=== PATIENT | male | born 1950 | race Caucasian/White ===

== ENCOUNTER 2016-05-29 17:22 | Inpatient (IN) | payer MEDICARE, BC ==
[~2016-05-29] VITALS: Ht 172.7 cm; Wt 100.3 kg
[2016-05-29 20:00] VITALS: BP 149/77; RESP 18
[2016-05-29] MEDS ORDERED: traMADol 50 MG TAB PO PRN (22:00)
[2016-05-29] MEDS ORDERED: BISACODYL 10 MG SUPP PR PRN (22:00)
[2016-05-29] MEDS: INSULIN GLARGINE [LANtus] 3 ML PEN SC SCH (22:00)
[2016-05-29 22:20] VITALS: Ht 172.7 cm; Wt 100.3 kg
[2016-05-29 23:09] LABS: ADD UMIC YES; URINE BILIRUBIN (Dip) NEGATIVE (NEGATIVE); URINE BLOOD (Dip) 1+ (NEGATIVE); URINE COLOR YELLOW (YELLOW); URINE GLUCOSE (Dip) NEGATIVE (NEGATIVE); URINE KETONES (Dip) NEGATIVE (NEGATIVE); URINE LEUKOCYTE ESTERASE (Dip) TRACE (NEGATIVE); URINE NITRITE (Dip) NEGATIVE (NEGATIVE); URINE TOTAL PROTEIN (Dip) 1+ (NEGATIVE); URINE UROBILINOGEN (Dip) 1.0 E.U./dL (0.1-1.0)
[2016-05-29 23:21] LABS: BACTERIA,URINE FEW
[2016-05-30] MEDS: PANTOPRAZOLE (EC) 40 MG TAB PO SCH (06:32)
[2016-05-30] MEDS: HYDROCODONE/APAP (5/325) TAB PO PRN (06:32)
[2016-05-30] MEDS ORDERED: GLIMEPIRIDE 4 MG TAB PO SCH (07:05)
[2016-05-30 07:35] LABS: BASOPHILS % 0.2 % (0.0-2.0); EOSINOPHILS # 0.3 10^3/ul (0.0-0.5); EOSINOPHILS % 2.8 % (0.0-7.0); HEMATOCRIT 38.9 % (42.0-52.0); LYMPHOCYTES # 1.2 10^3/ul (0.8-2.9); LYMPHOCYTES % 11.2 % (15.0-51.0); MEAN CORPUSCULAR HEMOGLOBIN 30.5 pg (29.0-33.0); MEAN CORPUSCULAR HGB CONC 33.4 g/dl (32.0-37.0); MEAN CORPUSCULAR VOLUME 91.4 fl (82.0-101.0); MEAN PLATELET VOLUME 8.6 fl (7.4-10.4); MONOCYTE # 0.9 10^3/ul (0.3-0.9); MONOCYTES % 7.9 % (0.0-11.0); NEUTROPHIL # 8.4 10^3/ul (1.6-7.5); NEUTROPHILS % 77.9 % (39.0-77.0); PLATELET COUNT 266 10^3/UL (140-440); RED BLOOD COUNT 4.26 10^6/ul (4.70-6.10); RED CELL DISTRIBUTION WIDTH 13.3 % (11.5-14.5); UNCORRECTED WBC 10.8 10^3/ul (4.8-10.8); WHITE BLOOD COUNT 10.8 10^3/ul (4.8-10.8)
[2016-05-30 07:43] LABS: MAGNESIUM 1.9 mg/dl (1.7-2.5)
[2016-05-30 07:44] LABS: ALBUMIN 3.6 g/dl (3.3-4.9)
[2016-05-30 07:45] LABS: POTASSIUM 4.4 mmol/L (3.5-5.1)
[2016-05-30 07:46] LABS: CREATININE 2.1 mg/dl (0.61-1.24)
[2016-05-30 07:47] LABS: ALBUMIN/GLOBULIN RATIO 0.92; BILIRUBIN,INDIRECT 0.5 mg/dl (0-1.1); BILIRUBIN,TOTAL 0.5 mg/dl (0.2-1.3); TOTAL PROTEIN 7.5 g/dl (6.1-8.1)
[2016-05-30 07:48] LABS: CALCIUM 10.8 mg/dl (8.4-10.2)
[2016-05-30 07:51] LABS: CONDITION 1
[2016-05-30 08:47] VITALS: BP 123/63; RESP 18
[2016-05-30] MEDS ORDERED: GLUCOSE GEL 15 GRAM TUBE BUCCAL PRN (09:30)
[2016-05-30] MEDS ORDERED: GLUCAGON 1 MG INJ IM PRN (09:30)
[2016-05-30] MEDS ORDERED: GLUCOSE GEL 15 GRAM TUBE PO PRN ×2 (09:30)
[2016-05-30] MEDS ORDERED: DEXTROSE 50% 50 ML SYRINGE IV PRN ×2 (09:30)
[2016-05-30] MEDS: METOPROLOL 100 MG TAB PO SCH (09:37)
[2016-05-30] MEDS: LINAGLIPTIN 5 MG TABLET PO SCH (09:37)
[2016-05-30] MEDS: ENOXAPARIN 30 MG/0.3 ML SYG SC SCH (09:50)
[2016-05-30] MEDS: INSULIN ASPART [NOVOLOG] 3 ML PEN SC SCH ×3 (12:22→20:44)
--- NOTE | 2016-05-30 13:13 | HP ---
DATE OF ADMISSION: 05/29/2016 CHIEF COMPLAINT: Left leg fracture. HISTORY OF PRESENT ILLNESS: This is a 65-year-old ____ with a past medical history of diabetes, his tory of possible chronic kidney disease who presented to an outside hospital after having a caterpillar mechanic al fall. The patient remained immobile after the fall, but had significant pain. As a result, the patient was brought in to an outside hospital, [place], where the patient was diagnosed with a left femoral fracture. The patient was seen by orthopedist, Dr. Bush. After having cardiac cleara nce, the patient underwent successful open reduction internal fixation, left distal femur. Followi ng the surgery, patient continued to have pain, but otherwise had no other complications. The umesh ent was then transferred to [facility] acute rehab for continued care. Upon my evaluation of patient at this time, he is currently stable. Denies any fevers, chills, naus ea, vomiting, any shortness of breath. PAST MEDICAL HISTORY: History of diabetes, possible history of CKD, history of hypertension. PAST SURGICAL HISTORY: Recent left femoral ORIF. FAMILY HISTORY: No family history of kidney disease or heart disease. SOCIAL HISTORY: Does not drink, smoke or do drugs. ALLERGIES: NO KNOWN DRUG ALLERGIES. MEDICATIONS: The patient's medications have been reviewed and reconciled. REVIEW OF SYSTEMS: A 14-point review of systems was conducted. Pertinent positives as stated in HP I, otherwise negative. PHYSICAL EXAMINATION: VITAL SIGNS: Blood pressure is 149/77, respiration 18, pulse 70, temperature 97.8. HEENT: Head is normocephalic. Pupils are reactive to light. NECK: Supple. HEART: Regular rate. LUNGS: Show diminished breath sounds at base. ABDOMEN: Soft, nontender to palpation with no rebound or guarding. ____ EXTREMITIES: Negative for clubbing, cyanosis, no edema. DERMATOLOGIC: No rashes. MUSCULOSKELETAL: The patient's left leg has noted gil and there was some mild surrounding eryth danay. No pain. NEUROLOGIC: No focal deficits. DERMATOLOGIC: No rashes. LABORATORY DATA: Shows sodium 143, potassium 4.4, chloride is 106, BUN 41, creatinine 2.10. Calciu m 10.8, alkaline phosphatase 188. White count 10.8, hemoglobin 13.0, hematocrit 38.9, platelet coun t is 266. Urinalysis shows 25 to 50 WBCs. ASSESSMENT AND PLAN: This is a 65-year-old male who presents with: 1. Left distal femoral fracture. The patient is status post open reduction internal fixation. Shemar n is for patient to receive physical therapy per acute rehabilitation. Pain control. The patient w ill receive thrombosis prophylaxis with Lovenox. 2. Possible chronic kidney disease. The patient's creatinine appears to be stable around 2 mg/dL. Underlying etiology may be due to underlying diabetic nephropathy. Full workup will be performed. Will check UA with microanalysis. Check urine electrolytes. We will quantify patient's proteinuri a by checking albumin creatinine ratio protein/creatinine ratio. We will check renal ultrasound to evaluate renal parenchyma. Would otherwise continue supportive care, renally dose meds, defer any A CE inhibitor at this time and monitor renal function closely. 3. Hypercalcemia. Underlying etiology is unclear. Workup will be performed. Will check PTH level , vitamin D25 level, will check an SPEP, UPEP with immunofixation and will continue to monitor clos patricia. 4. Anemia, likely of chronic disease. Continue to monitor H and H levels. 5. Diabetes. Continue Accu-Cheks and sliding scale. 6. Hypertension. Continue current blood pressure regimen. 7. Obesity. Recommend dietary modification. 8. GI/DVT prophylaxis. Continue PPI and Lovenox. Please note I spent 30 minutes of face to face time with this patient, discussing code status and ad ventura directives Dictated By: OMER TEMPLE/MARY Conf#: [id number] DID#: [id number]
--- NOTE | 2016-05-30 13:19 | CONS ---
DATE OF ADMISSION: 05/29/2016 DATE OF CONSULTATION: 05/30/2016 REHABILITATION POST ADMISSION PHYSICIAN EVALUATION REHABILITATION IMPAIRMENT CATEGORY: Left femur fracture with a comminuted fracture at the distal fe moral metaphysis, status post ORIF. ACTIVE COMORBIDITIES: 1. Diabetes mellitus type 2. 2. Hypertension. 3. Acute pain syndrome. 4. Impairments in self-care and mobility. HISTORY OF PRESENT ILLNESS: The patient is a 65-year-old gentleman who is status post a mechanical fall at home with resultant left distal femoral comminuted fracture. The patient underwent ORIF on 05/25/2016. His postoperative course has been notable for significant pain, and impairments in self -care and mobility as compared to baseline. The patient has been cleared to transfer to the rehabil itation unit for comprehensive interdisciplinary rehab care. FUNCTIONAL HISTORY: Prior to recent events, he was independent in self-care tasks and mobility. Cu rrently, he requires maximal assist for self-care and mobility tasks. SOCIAL HISTORY: The patient lives at home and hopes to return there upon discharge. He reports he does have stairs at home. PAST MEDICAL HISTORY: 1. Diabetes type 2. 2. Hypertension. CURRENT MEDICATIONS: 1. [place] p.r.n. 2. Dulaglutide subq once a week. 3. Glimeprimide 4 mg daily. 4. Lantus 55 units subcu at bedtime. 5. Metoprolol 100 mg p.o. daily. 6. Januvia 100 mg daily. 7. Tramadol 2 tabs p.o. q.4 hours p.r.n. ALLERGIES: THE PATIENT WITH NO KNOWN DRUG ALLERGIES. PHYSICAL EXAMINATION: VITAL SIGNS: The patient is currently afebrile with stable vital signs. HEENT: The extraocular motions are intact. Oropharynx clear. NECK: Supple. LUNGS: Clear anteriorly. CARDIAC: S1, S2. ABDOMEN: Soft, nontender, positive bowel sounds. NEUROLOGIC: He is awake, alert and oriented x3, can follow simple 1-step commands. He demonstrates antigravity strength in bilateral upper extremity and the right lower extremity. Dorsiflexion and plantar flexion intact on the left. PLAN: The patient has been admitted for comprehensive interdisciplinary acute rehab and is anticipa carolina to tolerate 3 hours of daily therapy in divided doses for at least 5/7 days a week. The treatme nt plan will include: 1. Physical therapy to focus on bed mobility, transfers, and household ambulation with the goal of having the patient reach a standby assist level. 2. Occupational therapy to focus on hygiene, grooming, dressing, bathing, and toileting activities with the goal of having the patient reach standby assist level. 3. Rehabilitation nursing for carryover of therapeutic interventions, the goal of continent of jayden l and bladder, the goal of pain adequately managed on oral medications. REHABILITATION BARRIER: Pain. INTERVENTION FOR BARRIER: Comprehensive interdisciplinary approach. ESTIMATED LENGTH OF STAY: 14 days. DISPOSITION GOAL: Home. I acknowledge that I have performed a full physical examination on this patient within 24 hours of a dmission to the rehabilitation unit and believe the patient is a good candidate for comprehensive in terdisciplinary rehab care and is anticipated to make reasonable goals in a reasonable period of mona e as outlined above. Dictated By: PATI WATERS/NTS Conf#: [id number] DID#: [id number]
[2016-05-30 18:02] LABS: ADD UMIC YES; URINE BILIRUBIN (Dip) NEGATIVE (NEGATIVE); URINE BLOOD (Dip) 1+ (NEGATIVE); URINE COLOR LT. YELLOW (YELLOW); URINE GLUCOSE (Dip) NEGATIVE (NEGATIVE); URINE KETONES (Dip) NEGATIVE (NEGATIVE); URINE LEUKOCYTE ESTERASE (Dip) TRACE (NEGATIVE); URINE NITRITE (Dip) NEGATIVE (NEGATIVE); URINE TOTAL PROTEIN (Dip) 2+ (NEGATIVE); URINE UROBILINOGEN (Dip) 1.0 E.U./dL (0.1-1.0)
[2016-05-30 18:15] LABS: SQUAMOUS EPITHELIAL CELL,UR RARE; URINE RBCS 0-2 /HPF (0)
[2016-05-30 20:00] VITALS: BP 124/74; RESP 18
[2016-05-30] MEDS: INSULIN GLARGINE [LANtus] 3 ML PEN SC SCH (20:46)
[2016-05-31] MEDS: ACCUCHECK XX SCH (01:21)
[2016-05-31] MEDS: PANTOPRAZOLE (EC) 40 MG TAB PO SCH (06:48)
[2016-05-31 07:14] LABS: POTASSIUM 4.3 mmol/L (3.5-5.1)
[2016-05-31 07:16] LABS: CREATININE 1.95 mg/dl (0.61-1.24)
[2016-05-31 07:17] LABS: CALCIUM 10.6 mg/dl (8.4-10.2); MAGNESIUM 1.9 mg/dl (1.7-2.5); PHOSPHORUS 2.9 mg/dl (2.5-4.9)
[2016-05-31] MEDS: INSULIN ASPART [NOVOLOG] 3 ML PEN SC SCH ×4 (07:35→20:45)
[2016-05-31 08:00] VITALS: BP 128/74; PULSE 77; RESP 18
[2016-05-31] MEDS: LINAGLIPTIN 5 MG TABLET PO SCH (08:46)
[2016-05-31] MEDS: ENOXAPARIN 30 MG/0.3 ML SYG SC SCH (08:46)
[2016-05-31] MEDS: METOPROLOL 100 MG TAB PO SCH (08:47)
[2016-05-31 11:06] LABS: BASOPHILS % 0.3 % (0.0-2.0); EOSINOPHILS # 0.3 10^3/ul (0.0-0.5); EOSINOPHILS % 3.2 % (0.0-7.0); HEMATOCRIT 36.8 % (42.0-52.0); HEMOGLOBIN 12.2 g/dl (14.0-18.0); LYMPHOCYTES # 1.2 10^3/ul (0.8-2.9); LYMPHOCYTES % 12.7 % (15.0-51.0); MEAN CORPUSCULAR HEMOGLOBIN 30.3 pg (29.0-33.0); MEAN CORPUSCULAR HGB CONC 33.2 g/dl (32.0-37.0); MEAN CORPUSCULAR VOLUME 91.4 fl (82.0-101.0); MEAN PLATELET VOLUME 8.8 fl (7.4-10.4); MONOCYTE # 0.7 10^3/ul (0.3-0.9); MONOCYTES % 7.8 % (0.0-11.0); NEUTROPHIL # 7.3 10^3/ul (1.6-7.5); PLATELET COUNT 251 10^3/UL (140-440); RED BLOOD COUNT 4.02 10^6/ul (4.70-6.10); RED CELL DISTRIBUTION WIDTH 13.4 % (11.5-14.5); UNCORRECTED WBC 9.6 10^3/ul (4.8-10.8); WHITE BLOOD COUNT 9.6 10^3/ul (4.8-10.8)
[2016-05-31 11:10] LABS: CONDITION 1
--- NOTE | 2016-05-31 11:13 | CONS ---
Date/Time of Note Date/Time of Note DATE: 05/31/16 TIME: 11:12 Consult Date/Type/Reason Admit Date/Time May 29, 2016 at 20:24 Initial Consult Date Subjective Feeling better Objective Vital Signs Date Time Temp Pulse Resp B/P Pulse Ox O2 Delivery O2 Flow Rate FiO2 05/31/16 08:00 97.3 77 18 128/74 94 Room Air Intake and Output 05/30/16 05/30/16 05/31/16 14:59 22:59 06:59 Intake Total 1550 ml 240 ml 360 ml Output Total 1450 ml 200 ml 950 ml Balance 100 ml 40 ml -590 ml pulm- cta mod assist ambulation 10 feet Results/Medications Result Diagram: 05/31/16 0608 05/31/16 0608 Results 24 hrs Laboratory Tests Test 05/30/16 11:51 05/30/16 13:00 05/30/16 16:15 05/30/16 17:10 Bedside Glucose 181 149 Gamma Glutamyl Transpeptidase 202 H Vitamin D 1,25-Dihydroxy < 12.8 L Urine Bilirubin NEGATIVE Urine Clarity CLEAR Urine Color LT. YELLOW Urine Glucose NEGATIVE Urine Hemoglobin 1+ H Urine Ketones NEGATIVE Urine Leukocyte Esterase TRACE H Urine Microscopic RBC 0-2 Urine Microscopic WBC 10-25 Urine Nitrite NEGATIVE Urine Random Creatinine 72.64 Urine Random Sodium 74 Urine Specific Filer 1.020 Urine Squamous Epithelial Cells RARE Urine Total Protein Urine Urobilinogen 1.0 E.U./dL Urine pH 6.0 Test 05/30/16 20:42 05/31/16 06:08 05/31/16 07:36 Bedside Glucose 135 110 Anion Gap 16 Basophils # 0.0 Basophils % 0.3 Blood Urea Nitrogen 40 H Calcium Level 10.6 H Carbon Dioxide Level 20 L Chloride Level 108 Creatinine 1.95 H Eosinophils # 0.3 Eosinophils % 3.2 Glucose Level 113 # Hematocrit 36.8 L Hemoglobin 12.2 L Lymphocytes # 1.2 Lymphocytes % 12.7 L Magnesium Level 1.9 Mean Corpuscular Hemoglobin 30.3 Mean Corpuscular Hemoglobin Concent 33.2 Mean Corpuscular Volume 91.4 Mean Platelet Volume 8.8 Monocytes # 0.7 Monocytes % 7.8 Neutrophils # 7.3 Neutrophils % 76.0 Nucleated Red Blood Cells # 0.0 Nucleated Red Blood Cells % 0.0 Phosphorus Level 2.9 Platelet Count 251 Potassium Level 4.3 Red Blood Count 4.02 L Red Cell Distribution Width 13.4 Sodium Level 140 White Blood Count 9.6 Medications Current Medications Acetaminophen/ Hydrocodone Bitart ([place] (5/325)) 1 tab Q4H PRN PO Moderate Pain 4-7 / 10 Last administered on 05/30/16 06:32; Admin Dose 1 TAB; Start at 22:00 Bisacodyl (Dulcolax Supp) 10 mg DAILY PRN [place] CONSTIPATION; Start 05/29/16 at 22 :00 Insulin Glargine (Lantus) 55 unit QHS SC Last administered on 05/30/16 20:46; Admin Dose 55 UNIT; Start 05/29/16 at 22:00 Metoprolol Tartrate (Lopressor) 100 mg DAILY PO Last administered on 05/31/16 08:47; Admin Dose 100 MG; Start 05/30/16 at 09:00 Pantoprazole (Protonix Tab) 40 mg DAILY@06 PO Last administered on 05/31/16 06: 48; Admin Dose 40 MG; Start 05/30/16 at 06:00 Tramadol HCl (Ultram) 100 mg Q4 PRN PO PAIN; Start 05/29/16 at 22:00 Miscellaneous Information (* Miscellaneous Pharmacy Order) DULAGLUTIDE 1.5 MG/ 0.5 MG ... ONCE XX ; Start 05/29/16 at 22:00; Status UNV Linagliptin (Tradjenta) 5 mg DAILY PO Last administered on 05/31/16 08:46; Admin Dose 5 MG; Start 05/30/16 at 09:00 Diagnostic Test (Pha) (Accucheck) 1 ea 02 XX ; Start 05/31/16 at 02:00 Miscellaneous Information 1 ea NOTE XX ; Start 05/30/16 at 09:30 Glucose (Glutose) 15 gm Q15M PRN PO DECREASED GLUCOSE; Start 05/30/16 at 09:30 Glucose (Glutose) 22.5 gm Q15M PRN PO DECREASED GLUCOSE; Start 05/30/16 at 09: 30 Dextrose (D50w Syringe) 25 ml Q15M PRN IV DECREASED GLUCOSE; Start 05/30/16 at 09:30 Dextrose (D50w Syringe) 50 ml Q15M PRN IV DECREASED GLUCOSE; Start 05/30/16 at 09:30 Glucagon (Glucagen) 1 mg Q15M PRN IM DECREASED GLUCOSE; Start 05/30/16 at 09:30 Glucose (Glutose) 15 gm Q15M PRN BUCCAL DECREASED GLUCOSE; Start 05/30/16 at 09 :30 Enoxaparin Sodium (Lovenox) 30 mg DAILY SC Last administered on 05/31/16t 08:46 ; Admin Dose 30 MG; Start 05/30/16 at 09:30 Assessment/Plan Additional Assessment/Plan Rehab- Left femur fracture with a comminuted fracture at the distal femoral metaphysis, status post ORIF. Continue rehab program Diabetes mellitus type 2. Hypertension. Acute pain syndrome. PATI PEREZ MD May 31, 2016 11:13
--- NOTE | 2016-05-31 12:01 | PN ---
DATE: 05/31/2016 SUBJECTIVE: The patient is stable, no acute events overnight. No fevers, chills, nausea, vomiting, no shortness of breath. OBJECTIVE: VITAL SIGNS: Blood pressure is 124/74, respiration 18, pulse 80, temperature 98.3. HEENT: Head is normocephalic. NECK: Supple. HEART: Regular rate. LUNGS: Show diminished breath sounds at the base. ABDOMEN: Soft, nontender to palpation. No rebound or guarding. EXTREMITIES: Negative for clubbing, cyanosis. No edema. DERMATOLOGIC: No rashes. MUSCULOSKELETAL: The patient's dressing over his left femur is clean, dry, and intact. NEUROLOGIC: No focal deficits. MEDICATIONS: Patient's medications have been reviewed. LABORATORY DATA: Shows sodium 140, potassium 4.3, chloride 108, BUN 40, creatinine 1.95, calcium 10 .6. White count 10.8, hemoglobin 13.0, hematocrit 38.9, platelet count 266. ASSESSMENT AND PLAN: 1. Left distal femoral fracture. The patient is status post open reduction internal fixation. The patient will continue PT, OT, per acute rehabilitation. 2. Possible chronic kidney disease. The patient's renal function appears stable, creatinine 2 mg/d L. Underlying etiology is unclear, possibly due to diabetic nephropathy. A full workup is ongoing. SPEP, UPEP are pending. The patient's protein/creatinine ratio, albumin and creatinine ratio pendi ng. We will follow up renal ultrasound. Otherwise, continue supportive care, renally dose all meds , avoid nephrotoxins. 3. Hypercalcemia, etiology is unclear. Workup ongoing. We will follow up PTH level, SPEP, UPEP le mauro. The patient's vitamin D25 levels are low. We will continue to monitor. 4. Anemia of chronic disease. Continue to monitor H and H levels. 5. Diabetes. Continue current insulin regimen, Lantus and insulin sliding scale. 6. Hypertension, controlled. 7. Obesity. Continue dietary modification. 8. GI and DVT prophylaxis. Continue proton pump inhibitor and Lovenox. Dictated By: OMER TEMPLE/NTS Conf#: [id number] DID#: [id number]
[2016-05-31 20:00] VITALS: BP 118/66; RESP 18
[2016-05-31] MEDS: INSULIN GLARGINE [LANtus] 3 ML PEN SC SCH (20:48)
[2016-06-01] MEDS: ACCUCHECK XX SCH (02:00)
[2016-06-01 03:58] LABS: PROTEIN, TOTAL 6.5 g/dL (6.1-8.1)
[2016-06-01] MEDS: PANTOPRAZOLE (EC) 40 MG TAB PO SCH (06:00)
[2016-06-01 06:57] LABS: POTASSIUM 4.4 mmol/L (3.5-5.1)
[2016-06-01 07:00] LABS: CREATININE 1.96 mg/dl (0.61-1.24)
[2016-06-01 07:01] LABS: CALCIUM 10.8 mg/dl (8.4-10.2); MAGNESIUM 1.9 mg/dl (1.7-2.5); PHOSPHORUS 3.5 mg/dl (2.5-4.9)
[2016-06-01] MEDS: INSULIN ASPART [NOVOLOG] 3 ML PEN SC SCH ×4 (07:35→21:00)
[2016-06-01 08:00] VITALS: BP 129/80; RESP 18
[2016-06-01] MEDS: LINAGLIPTIN 5 MG TABLET PO SCH (08:41)
[2016-06-01] MEDS: ENOXAPARIN 30 MG/0.3 ML SYG SC SCH (08:41)
[2016-06-01] MEDS: METOPROLOL 100 MG TAB PO SCH (08:42)
[2016-06-01 09:29] LABS: BILIRUBIN,INDIRECT 0.4 mg/dl (0-1.1); BILIRUBIN,TOTAL 0.4 mg/dl (0.2-1.3)
--- NOTE | 2016-06-01 11:55 | CONS ---
Date/Time of Note Date/Time of Note DATE: 06/01/16 TIME: 11:54 Consult Date/Type/Reason Admit Date/Time May 29, 2016 at 20:24 Subjective Reports constipation Objective Vital Signs Date Time Temp Pulse Resp B/P Pulse Ox O2 Delivery O2 Flow Rate FiO2 06/01/16 08:00 98.5 80 18 129/80 93 05/31/16 08:00 Room Air Intake and Output 05/31/16 05/31/16 06/01/16 15:00 23:00 07:00 Intake Total 720 ml 650 ml Output Total 1000 ml 500 ml Balance -280 ml 150 ml pulm- cta mod assist transfer and amb 10 feet Results/Medications Result Diagram: 05/31/16 0608 06/01/16 0606 Results 24 hrs Laboratory Tests Test 05/31/16 12:08 05/31/16 17:10 05/31/16 20:43 06/01/16 06:06 Bedside Glucose 134 128 113 Alanine Aminotransferase (ALT/SGPT) 40 Albumin 3.0 L Alkaline Phosphatase 164 H Anion Gap 16 Aspartate Amino Transf (AST/SGOT) 33 Blood Urea Nitrogen 41 H Calcium Level 10.8 H Carbon Dioxide Level 20 L Chloride Level 109 Creatinine 1.96 H Direct Bilirubin 0.00 Glucose Level 107 Indirect Bilirubin 0.4 Magnesium Level 1.9 Phosphorus Level 3.5 Potassium Level 4.4 Sodium Level 141 Total Bilirubin 0.4 Total Protein 6.0 #L Test 06/01/16 07:39 Bedside Glucose 105 Medications Current Medications Acetaminophen/ Hydrocodone Bitart ([place] (5/325)) 1 tab Q4H PRN PO Moderate Pain 4-7 / 10 Last administered on 05/30/16 06:32; Admin Dose 1 TAB; Start at 22:00 Bisacodyl (Dulcolax Supp) 10 mg DAILY PRN [place] CONSTIPATION; Start 05/29/16 at 22 :00 Insulin Glargine (Lantus) 55 unit QHS SC Last administered on 05/31/16 20:48; Admin Dose 55 UNIT; Start 05/29/16 at 22:00 Metoprolol Tartrate (Lopressor) 100 mg DAILY PO Last administered on 06/01/16 08:42; Admin Dose 100 MG; Start 05/30/16 at 09:00 Pantoprazole (Protonix Tab) 40 mg DAILY@06 PO Last administered on 05/31/16 06: 48; Admin Dose 40 MG; Start 05/30/16 at 06:00 Tramadol HCl (Ultram) 100 mg Q4 PRN PO PAIN; Start 05/29/16 at 22:00 Miscellaneous Information (* Miscellaneous Pharmacy Order) DULAGLUTIDE 1.5 MG/ 0.5 MG ... ONCE XX ; Start 05/29/16 at 22:00; Status UNV Linagliptin (Tradjenta) 5 mg DAILY PO Last administered on 06/01/16 08:41; Admin Dose 5 MG; Start 05/30/16 at 09:00 Diagnostic Test (Pha) (Accucheck) 1 ea 02 XX ; Start 05/31/16 at 02:00 Miscellaneous Information 1 ea NOTE XX ; Start 05/30/16 at 09:30 Glucose (Glutose) 15 gm Q15M PRN PO DECREASED GLUCOSE; Start 05/30/16 at 09:30 Glucose (Glutose) 22.5 gm Q15M PRN PO DECREASED GLUCOSE; Start 05/30/16 at 09: 30 Dextrose (D50w Syringe) 25 ml Q15M PRN IV DECREASED GLUCOSE; Start 05/30/16 at 09:30 Dextrose (D50w Syringe) 50 ml Q15M PRN IV DECREASED GLUCOSE; Start 05/30/16 at 09:30 Glucagon (Glucagen) 1 mg Q15M PRN IM DECREASED GLUCOSE; Start 05/30/16 at 09:30 Glucose (Glutose) 15 gm Q15M PRN BUCCAL DECREASED GLUCOSE; Start 05/30/16 at 09 :30 Enoxaparin Sodium (Lovenox) 30 mg DAILY SC Last administered on 06/01/16 08:41 ; Admin Dose 30 MG; Start 05/30/16 at 09:30 Lactulose (Enulose) 10 gm DAILY PRN PO CONSTIPATION; Start 06/01/16 at 10:30 Assessment/Plan Additional Assessment/Plan Rehab- Left femur fracture with a comminuted fracture at the distal femoral metaphysis, status post ORIF. Continue rehab therapies Diabetes mellitus type 2. Hypertension. Acute pain syndrome. PATI PEREZ MD Jun 01, 2016 11:55
--- NOTE | 2016-06-01 12:37 | RADRPT ---
PROCEDURE: US Abdomen and Retroperitoneum. CLINICAL INDICATION: Abdominal pain. TECHNIQUE: Multiple real-time longitudinal and transverse images were acquired of the patient's ab domen and retroperitoneum utilizing a curved array transducer. COMPARISON: No prior studies are available for comparison. FINDINGS: The liver is normal in size and echogenicity. The liver has a normal smooth surface. There is no fo you hepatic lesion. Color Doppler and pulsed Doppler sonography demonstrate normal antegrade flow in the portal vein. Multiple gallstones are present in the gallbladder. There is no gallbladder wall thickening and the re is no fluid around the gallbladder. The bile ducts are normal with the common bile duct measuring 4.8 mm in diameter. The spleen is normal in size. There is no focal splenic lesion. The pancreas and abdominal aorta are not well seen due to overlying bowel gas. There is no free fluid. The right kidney measures 9.8 cm and the left kidney measures 10.1 cm. There is no solid renal mass. There are small benign bilateral renal cysts. There is no hydronephrosis or calculus. IMPRESSION: 1. Gallstones in the gallbladder. No evidence of cholecystitis. 2. Pancreas and abdominal aorta not well seen due to overlying bowel gas. 3. Small benign bilateral renal cysts. 4. Otherwise unremarkable study. RPTAT: QQ .Davidson Guevara MD, MD Date Time Electronically viewed and signed by .Davidson Guevara MD, MD on 06/01/2016 12:37 .R/
--- NOTE | 2016-06-01 12:45 | PN ---
DATE: 06/01/2016 SUBJECTIVE: The patient is stable, no acute events overnight. No fevers, chills, nausea, vomiting. No other acute events noted overnight. OBJECTIVE: VITAL SIGNS: Blood pressure 129/80, respirations 18, pulse 80, temperature 98.5. HEENT: Head is normocephalic. NECK: Supple. HEART: Regular rate. LUNGS: Show diminished breath sounds at the base. ABDOMEN: Soft, nontender to palpation, no rebound or guarding. EXTREMITIES: Negative for clubbing, cyanosis, no edema. DERMATOLOGIC: No rashes. MUSCULOSKELETAL: No joint effusions. NEUROLOGIC: No change in exam. MEDICATIONS: The patient's medications have been reviewed. LABORATORY DATA: Shows sodium 141, potassium 4.4, chloride 109, BUN 41, creatinine 1.96, calcium 10 .8. The patient's urine culture shows gram-negative rods, less than 10,000 colony forming units. ASSESSMENT AND PLAN: 1. Left distal femoral fracture. The patient is status post open reduction internal fixation. Con tinue PT, OT. 2. Probable chronic kidney disease. Underlying etiology is likely due to diabetes, hypertension. Renal function appears to be stable with creatinine 2.0 mg/dL. Plan at this point is to follow up w ith a renal ultrasound. SPEP, UPEP are pending. A protein/creatinine ratio and albumin/creatinine ratio are also pending for further evaluation. Otherwise, continue supportive care, renally dose al l meds, avoid nephrotoxins. 3. Mineral bone disorder. The patient is hypercalcemic, etiology is unclear if this is PTH mediate d or non-PTH mediated. Workup is ongoing as stated above. We will follow up PTH, SPEP, UPEP, vitam in D level. Continue to monitor calcium levels. 4. Anemia of chronic disease. Continue to monitor hemoglobin and hematocrit levels. 5. Diabetes. Continue current insulin regimen. 6. Hypertension, controlled. 7. Obesity. Continue dietary modification. 8. Elevated alkaline phosphatase, etiology may be hepatic in nature. The patient has elevated GGT. Will get an abdominal ultrasound for evaluation of the liver and monitor. 9. Gastrointestinal and deep venous thrombosis prophylaxis. Continue PPI and Lovenox. Dictated By: OMER TEMPLE/NTS Conf#: [id number] DID#: [id number]
[2016-06-01 16:04] LABS: MICROALBUMIN 57.6 mg/dL
[2016-06-01 16:27] LABS: CREATININE, RANDOM URINE 89 mg/dL (20-370); PROTEIN/CREATININE RATIO 1281 mg/g creat (22-128)
[2016-06-01 19:22] VITALS: BP 142/74; RESP 19
[2016-06-01] MEDS: INSULIN GLARGINE [LANtus] 3 ML PEN SC SCH (20:41)
[2016-06-01] MEDS: LACTULOSE 30ML CUP PO PRN ×2 (20:42→21:04)
[2016-06-02] MEDS: ACCUCHECK XX SCH (02:00)
[2016-06-02] MEDS: PANTOPRAZOLE (EC) 40 MG TAB PO SCH (06:12)
[2016-06-02 07:30] VITALS: BP 135/77; RESP 18
[2016-06-02] MEDS: INSULIN ASPART [NOVOLOG] 3 ML PEN SC SCH ×4 (07:35→20:31)
[2016-06-02 08:00] VITALS: BP 135/77; PULSE 92; RESP 18
[2016-06-02] MEDS: LINAGLIPTIN 5 MG TABLET PO SCH (08:22)
[2016-06-02] MEDS: ENOXAPARIN 30 MG/0.3 ML SYG SC SCH (08:24)
[2016-06-02] MEDS: METOPROLOL 100 MG TAB PO SCH (08:25)
[2016-06-02 08:48] LABS: ALBUMIN 3.1 g/dL (3.8-4.8)
--- NOTE | 2016-06-02 11:36 | CONS ---
Date/Time of Note Date/Time of Note DATE: 06/02/16 TIME: 11:35 Consult Date/Type/Reason Admit Date/Time May 29, 2016 at 20:24 Subjective Constipation Objective pulm- cta mod assist transfer Vital Signs Date Time Temp Pulse Resp B/P Pulse Ox O2 Delivery O2 Flow Rate FiO2 06/02/16 08:00 98.3 92 18 135/77 96 Room Air Intake and Output 06/01/16 06/01/16 06/02/16 15:00 23:00 07:00 Intake Total 480 ml 560 ml 100 ml Output Total 750 ml 350 ml 700 ml Balance -270 ml 210 ml -600 ml Results/Medications Result Diagram: 05/31/16 0608 06/01/16 0606 Results 24 hrs Laboratory Tests Test 06/01/16 12:16 06/01/16 17:00 06/01/16 20:38 06/02/16 07:45 Bedside Glucose 84 94 123 60 L Test 06/02/16 08:02 06/02/16 08:21 06/02/16 08:51 Lab Scanned Report REFERENCE LAB REFERENCE LAB Bedside Glucose 85 Medications Current Medications Acetaminophen/ Hydrocodone Bitart ([place] (5/325)) 1 tab Q4H PRN PO Moderate Pain 4-7 / 10 Last administered on 05/30/16 06:32; Admin Dose 1 TAB; Start at 22:00 Bisacodyl (Dulcolax Supp) 10 mg DAILY PRN [place] CONSTIPATION; Start 05/29/16 at 22 :00 Metoprolol Tartrate (Lopressor) 100 mg DAILY PO Last administered on 06/02/16 08:25; Admin Dose 100 MG; Start 05/30/16 at 09:00 Pantoprazole (Protonix Tab) 40 mg DAILY@06 PO Last administered on 06/02/16 06: 12; Admin Dose 40 MG; Start 05/30/16 at 06:00 Tramadol HCl (Ultram) 100 mg Q4 PRN PO PAIN; Start 05/29/16 at 22:00 Linagliptin (Tradjenta) 5 mg DAILY PO Last administered on 06/02/16 08:22; Admin Dose 5 MG; Start 05/30/16 at 09:00 Diagnostic Test (Pha) (Accucheck) 1 ea 02 XX ; Start 05/31/16 at 02:00 Miscellaneous Information 1 ea NOTE XX ; Start 05/30/16 at 09:30 Glucose (Glutose) 15 gm Q15M PRN PO DECREASED GLUCOSE; Start 05/30/16 at 09:30 Glucose (Glutose) 22.5 gm Q15M PRN PO DECREASED GLUCOSE; Start 05/30/16 at 09: 30 Dextrose (D50w Syringe) 25 ml Q15M PRN IV DECREASED GLUCOSE; Start 05/30/16 at 09:30 Dextrose (D50w Syringe) 50 ml Q15M PRN IV DECREASED GLUCOSE; Start 05/30/16 at 09:30 Glucagon (Glucagen) 1 mg Q15M PRN IM DECREASED GLUCOSE; Start 05/30/16 at 09:30 Glucose (Glutose) 15 gm Q15M PRN BUCCAL DECREASED GLUCOSE; Start 05/30/16 at 09 :30 Enoxaparin Sodium (Lovenox) 30 mg DAILY SC Last administered on 06/02/16t 08:24 ; Admin Dose 30 MG; Start 05/30/16 at 09:30 Lactulose (Enulose) 10 gm DAILY PRN PO CONSTIPATION; Start 06/01/16 at 10:30 Insulin Glargine (Lantus) 50 unit QHS SC ; Start 06/02/16 at 21:00 Assessment/Plan Additional Assessment/Plan Rehab- Left femur fracture with a comminuted fracture at the distal femoral metaphysis, status post ORIF. Continue rehab program Diabetes mellitus type 2. Hypertension. Acute pain syndrome. PATI PEREZ MD Jun 02, 2016 11:36
[2016-06-02] MEDS: LACTULOSE 30ML CUP PO PRN (12:16)
--- NOTE | 2016-06-02 13:53 | PN ---
DATE: 06/02/2016 SUBJECTIVE: The patient is stable, no acute events overnight. No fevers, chills, nausea, vomiting. Patient's pain is adequately controlled with ____ physical therapy. OBJECTIVE: VITAL SIGNS: Blood pressure 135/77, respiration 18, pulse 92, temperature 98.3. HEENT: Head is normocephalic. NECK: Supple. HEART: Regular rate. LUNGS: Show diminished breath sounds at the base. ABDOMEN: Soft, nontender to palpation. No rebound or guarding. EXTREMITIES: Negative for clubbing, cyanosis, no edema. The patient's left leg is in a soft brace. DERMATOLOGIC: No rashes. MUSCULOSKELETAL: No joint effusions. NEUROLOGIC: No change in exam. MEDICATIONS: The patient's medications have been reviewed. LABORATORY DATA: The patient's urinalysis shows a protein/creatinine ratio of 1.2 grams per gram of creatinine. Microalbumin creatinine ratio is 600 mg per gram of creatinine. IMAGING STUDIES: Patient's parathyroid hormone is 60. SPEP UPEP immunofixation were negative. The patient had abdominal ultrasound shows gallstones. No evidence of cholecystitis and benign renal c ysts. The patient's liver was otherwise within normal limits. ASSESSMENT AND PLAN: 1. Left distal femoral fracture. The patient is status post open reduction internal fixation. Con belgica PT, OT. 2. Chronic kidney disease. Etiology is likely due to diabetes, hypertension. The patient's renal function appears to be stable around 2 mg/dL. The patient's abdominal ultrasound shows bilateral re nal cysts with no underlying change of parenchyma. The patient does have a protein creatinine ratio approximately 1.2 grams per gram of creatinine likely due to underlying CKD. The patient's SPEP U PEP had been negative. At this point, continue current treatment plan, supportive care, renally dos e all meds, would consider introducing CHRISTOPHE inhibitor once renal function shows to be stable. 3. Mineral bone disorder. The patient is hypocalcemic. Etiology may be due to PTH mediated pathwa y. The patient's PTH level is 60, which is inappropriately elevated for hypercalcemia. Would consi guillermo possibly checking a parathyroid nuclear scan. We will continue to monitor calcium levels. As s tated above, the patient's SPEP and UPEP were negative. Vitamin D levels were low. 4. Anemia of chronic disease. Continue to monitor H and H levels. 5. Diabetes. Continue current insulin regimen. Lantus was adjusted to avoid hypoglycemic episodes . 6. Hypertension. Continue current blood pressure regimen. 7. Obesity, continue dietary modification. 8. Elevated alkaline phosphatase, etiology appears to be hepatic in nature. The patient had elevat ed GGT. Abdominal ultrasound shows no hepatic pathology. Will continue to monitor LFTs. May consi guillermo a GI evaluation. GI, DVT prophylaxis. Continue proton pump inhibitor and Lovenox. Dictated By: OMER TEMPLE/MARY Conf#: [id number] DID#: [id number]
[2016-06-02 20:00] VITALS: BP 112/70; PULSE 81; RESP 20
[2016-06-02] MEDS ORDERED: INSULIN GLARGINE [LANtus] 3 ML PEN SC SCH (21:00)
[2016-06-03] MEDS: ACCUCHECK XX SCH (02:00)
[2016-06-03] MEDS: PANTOPRAZOLE (EC) 40 MG TAB PO SCH (05:40)
[2016-06-03] MEDS: INSULIN ASPART [NOVOLOG] 3 ML PEN SC SCH ×4 (07:35→21:00)
--- NOTE | 2016-06-03 07:41 | CONS ---
Date/Time of Note Date/Time of Note DATE: 06/03/16 TIME: 07:40 Consult Date/Type/Reason Admit Date/Time May 29, 2016 at 20:24 Subjective Results with bowel program Objective pulm- cta min/mod assist ambulation Vital Signs Date Time Temp Pulse Resp B/P Pulse Ox O2 Delivery O2 Flow Rate FiO2 06/02/16 20:00 98.4 81 20 112/70 93 Room Air Intake and Output 06/02/16 06/02/16 06/03/16 15:00 23:00 07:00 Intake Total 1110 ml 300 ml Output Total 1170 ml 500 ml Balance -60 ml -200 ml Results/Medications Result Diagram: 05/31/16 0608 06/01/16 0606 Results 24 hrs Laboratory Tests Test 06/02/16 07:45 06/02/16 08:02 06/02/16 08:21 06/02/16 08:51 Bedside Glucose 60 L 85 Lab Scanned Report REFERENCE LAB REFERENCE LAB Test 06/02/16 11:53 06/02/16 16:29 06/02/16 20:25 Bedside Glucose 77 70 103 Medications Current Medications Acetaminophen/ Hydrocodone Bitart ([place] (5/325)) 1 tab Q4H PRN PO Moderate Pain 4-7 10 Last administered on 05/30/16 06:32; Admin Dose 1 TAB; Start at 22:00 Bisacodyl (Dulcolax Supp) 10 mg DAILY PRN [place] CONSTIPATION; Start 05/29/16 at 22 :00 Metoprolol Tartrate (Lopressor) 100 mg DAILY PO Last administered on 06/02/16 08:25; Admin Dose 100 MG; Start 05/30/16 at 09:00 Pantoprazole (Protonix Tab) 40 mg DAILY@06 PO Last administered on 06/03/16 05: 40; Admin Dose 40 MG; Start 05/30/16 at 06:00 Tramadol HCl (Ultram) 100 mg Q4 PRN PO PAIN; Start 05/29/16 at 22:00 Linagliptin (Tradjenta) 5 mg DAILY PO Last administered on 06/02/16 08:22; Admin Dose 5 MG; Start 05/30/16 at 09:00 Diagnostic Test (Pha) (Accucheck) 1 ea 02 XX ; Start 05/31/16 at 02:00 Miscellaneous Information 1 ea NOTE XX ; Start 05/30/16 at 09:30 Glucose (Glutose) 15 gm Q15M PRN PO DECREASED GLUCOSE; Start 05/30/16 at 09:30 Glucose (Glutose) 22.5 gm Q15M PRN PO DECREASED GLUCOSE; Start 05/30/16 at 09: 30 Dextrose (D50w Syringe) 25 ml Q15M PRN IV DECREASED GLUCOSE; Start 05/30/16 at 09:30 Dextrose (D50w Syringe) 50 ml Q15M PRN IV DECREASED GLUCOSE; Start 05/30/16 at 09:30 Glucagon (Glucagen) 1 mg Q15M PRN IM DECREASED GLUCOSE; Start 05/30/16 at 09:30 Glucose (Glutose) 15 gm Q15M PRN BUCCAL DECREASED GLUCOSE; Start 05/30/16 at 09 :30 Enoxaparin Sodium (Lovenox) 30 mg DAILY SC Last administered on 06/02/16 08:24 ; Admin Dose 30 MG; Start 05/30/16 at 09:30 Lactulose (Enulose) 10 gm DAILY PRN PO CONSTIPATION Last administered on 12:16; Admin Dose 10 GM; Start 06/01/16 at 10:30 Insulin Glargine (Lantus) 50 unit QHS SC ; Start 06/02/16 at 21:00 Assessment/Plan Additional Assessment/Plan Rehab- Left femur fracture with a comminuted fracture at the distal femoral metaphysis, status post ORIF. Continue rehab therapies. GI- results with bowel program Diabetes mellitus type 2. Hypertension. Acute pain syndrome. PATI PEREZ MD Jun 03, 2016 07:40
[2016-06-03 08:00] VITALS: BP 136/79; PULSE 76; RESP 18
[2016-06-03 08:47] LABS: POTASSIUM 4.2 mmol/L (3.5-5.1)
[2016-06-03 08:50] LABS: CREATININE 1.83 mg/dl (0.61-1.24)
[2016-06-03 08:51] LABS: CALCIUM 10.6 mg/dl (8.4-10.2); PHOSPHORUS 3.1 mg/dl (2.5-4.9)
--- NOTE | 2016-06-03 08:55 | CONS ---
Date/Time of Note Date/Time of Note DATE: 06/03/16 TIME: 08:54 Consult Date/Type/Reason Admit Date/Time May 29, 2016 at 20:24 Initial Consult Date Type of Consultation: medicine Subjective Pt. seen and examined. good uop. BS NL off lantus Objective Vital Signs Date Time Temp Pulse Resp B/P Pulse Ox O2 Delivery O2 Flow Rate FiO2 06/02/16 20:00 98.4 81 20 112/70 93 Room Air Intake and Output 06/02/16 06/02/16 06/03/16 15:00 23:00 07:00 Intake Total 1110 ml 300 ml Output Total 1170 ml 500 ml Balance -60 ml -200 ml Results/Medications Result Diagram: 05/31/16 0608 06/01/16 0606 Results 24 hrs Laboratory Tests Test 06/02/16 11:53 06/02/16 16:29 06/02/16 20:25 06/03/16 07:41 Bedside Glucose 77 70 103 110 Medications Current Medications Acetaminophen/ Hydrocodone Bitart ([place] (5/325)) 1 tab Q4H PRN PO Moderate Pain 4-7 / 10 Last administered on 05/30/16 06:32; Admin Dose 1 TAB; Start at 22:00 Bisacodyl (Dulcolax Supp) 10 mg DAILY PRN [place] CONSTIPATION; Start 05/29/16 at 22 :00 Metoprolol Tartrate (Lopressor) 100 mg DAILY PO Last administered on 06/02/16 08:25; Admin Dose 100 MG; Start 05/30/16 at 09:00 Pantoprazole (Protonix Tab) 40 mg DAILY@06 PO Last administered on 06/03/16 05: 40; Admin Dose 40 MG; Start 05/30/16 at 06:00 Tramadol HCl (Ultram) 100 mg Q4 PRN PO PAIN; Start 05/29/16 at 22:00 Linagliptin (Tradjenta) 5 mg DAILY PO Last administered on 06/02/16 08:22; Admin Dose 5 MG; Start 05/30/16 at 09:00 Diagnostic Test (Pha) (Accucheck) 1 ea 02 XX ; Start 05/31/16 at 02:00 Miscellaneous Information 1 ea NOTE XX ; Start 05/30/16 at 09:30 Glucose (Glutose) 15 gm Q15M PRN PO DECREASED GLUCOSE; Start 05/30/16 at 09:30 Glucose (Glutose) 22.5 gm Q15M PRN PO DECREASED GLUCOSE; Start 05/30/16 at 09: 30 Dextrose (D50w Syringe) 25 ml Q15M PRN IV DECREASED GLUCOSE; Start 05/30/16 at 09:30 Dextrose (D50w Syringe) 50 ml Q15M PRN IV DECREASED GLUCOSE; Start 05/30/16 at 09:30 Glucagon (Glucagen) 1 mg Q15M PRN IM DECREASED GLUCOSE; Start 05/30/16 at 09:30 Glucose (Glutose) 15 gm Q15M PRN BUCCAL DECREASED GLUCOSE; Start 05/30/16 at 09 :30 Enoxaparin Sodium (Lovenox) 30 mg DAILY SC Last administered on 06/02/16 08:24 ; Admin Dose 30 MG; Start 05/30/16 at 09:30 Lactulose (Enulose) 10 gm DAILY PRN PO CONSTIPATION Last administered on 12:16; Admin Dose 10 GM; Start 06/01/16 at 10:30 Insulin Glargine (Lantus) 50 unit QHS SC ; Start 06/02/16 at 21:00 Assessment/Plan Chief Complaint/Hosp Course 1. Left distal femoral fracture. The patient is status post open reduction internal fixation. Continue PT, OT. 2. Chronic kidney disease. Etiology is likely due to diabetes, hypertension. The patient's renal function appears to be stable around 2 mg/dL. The patient' s abdominal ultrasound shows bilateral renal cysts with no underlying change of parenchyma. The patient does have a protein creatinine ratio approximately 1.2 grams per gram of creatinine likely due to underlying CKD. The patient's SPEP UPEP had been negative. At this point, continue current treatment plan, supportive care, renally dose all meds, would consider introducing CHRISTOPHE inhibitor once renal function shows to be stable. 3. Mineral bone disorder. The patient is hypocalcemic. Etiology may be due to PTH mediated pathway. The patient's PTH level is 60, which is inappropriately elevated for hypercalcemia. Would consider possibly checking a parathyroid nuclear scan. We will continue to monitor calcium levels. As stated above, the patient's SPEP and UPEP were negative. Vitamin D levels were low. 4. Anemia of chronic disease. Continue to monitor H and H levels. 5. Diabetes. Continue current insulin regimen. Lantus was adjusted to avoid hypoglycemic episodes. 6. Hypertension. Continue current blood pressure regimen. 7. Obesity, continue dietary modification. 8. Elevated alkaline phosphatase, etiology appears to be hepatic in nature. The patient had elevated GGT. Abdominal ultrasound shows no hepatic pathology. Will continue to monitor LFTs. May consider a GI evaluation. GI, DVT prophylaxis. Continue proton pump inhibitor and Lovenox. Problems: MICAELA MUNOZ MD Jun 03, 2016 08:55
[2016-06-03] MEDS: METOPROLOL 100 MG TAB PO SCH (09:20)
[2016-06-03] MEDS: LINAGLIPTIN 5 MG TABLET PO SCH (09:20)
[2016-06-03] MEDS: ENOXAPARIN 30 MG/0.3 ML SYG SC SCH (09:21)
[2016-06-03 20:01] VITALS: BP 107/57; PULSE 78; RESP 17
[2016-06-04] MEDS: ACCUCHECK XX SCH (02:00)
[2016-06-04] MEDS: PANTOPRAZOLE (EC) 40 MG TAB PO SCH (06:32)
[2016-06-04 08:00] VITALS: BP 129/71; PULSE 74; RESP 18
[2016-06-04] MEDS: LINAGLIPTIN 5 MG TABLET PO SCH (08:39)
[2016-06-04] MEDS: METOPROLOL 100 MG TAB PO SCH (08:39)
[2016-06-04] MEDS: INSULIN ASPART [NOVOLOG] 3 ML PEN SC SCH ×4 (08:42→20:45)
[2016-06-04] MEDS: ENOXAPARIN 30 MG/0.3 ML SYG SC SCH (08:43)
--- NOTE | 2016-06-04 09:12 | CONS ---
Date/Time of Note Date/Time of Note DATE: 06/04/16 TIME: 09:11 Consult Date/Type/Reason Admit Date/Time May 29, 2016 at 20:24 Type of Consultation: medicine Subjective no new c/o. d/w rn. no cp/sob/n/v/f/c. Objective Vital Signs Date Time Temp Pulse Resp B/P Pulse Ox O2 Delivery O2 Flow Rate FiO2 06/04/16 08:00 97.7 74 18 129/71 96 Room Air Intake and Output 06/03/16 06/03/16 06/04/16 15:00 23:00 07:00 Intake Total 1000 ml 300 ml Output Total 800 ml 450 ml Balance 200 ml -150 ml HEENT: Head is normocephalic. NECK: Supple. HEART: Regular rate. LUNGS: Show diminished breath sounds at the base. ABDOMEN: Soft, nontender to palpation. No rebound or guarding. EXTREMITIES: Negative for clubbing, cyanosis, no edema. The patient's left leg is in a soft brace. DERMATOLOGIC: No rashes. MUSCULOSKELETAL: No joint effusions. NEUROLOGIC: No change in exam. Results/Medications Result Diagram: 05/31/16 0608 06/03/16 0610 Results 24 hrs Laboratory Tests Test 06/03/16 12:08 06/03/16 17:08 06/03/16 21:07 06/04/16 07:19 Bedside Glucose 118 125 151 150 Medications Current Medications Acetaminophen/ Hydrocodone Bitart ([place] (5/325)) 1 tab Q4H PRN PO Moderate Pain 4-7 / 10 Last administered on 05/30/16 06:32; Admin Dose 1 TAB; Start at 22:00 Bisacodyl (Dulcolax Supp) 10 mg DAILY PRN [place] CONSTIPATION; Start 05/29/16 at 22 :00 Metoprolol Tartrate (Lopressor) 100 mg DAILY PO Last administered on 06/04/16 08:39; Admin Dose 100 MG; Start 05/30/16 at 09:00 Pantoprazole (Protonix Tab) 40 mg DAILY@06 PO Last administered on 06/04/16 06: 32; Admin Dose 40 MG; Start 05/30/16 at 06:00 Tramadol HCl (Ultram) 100 mg Q4 PRN PO PAIN; Start 05/29/16 at 22:00 Linagliptin (Tradjenta) 5 mg DAILY PO Last administered on 06/04/16 08:39; Admin Dose 5 MG; Start 05/30/16 at 09:00 Diagnostic Test (Pha) (Accucheck) 1 ea 02 XX ; Start 05/31/16 at 02:00 Miscellaneous Information 1 ea NOTE XX ; Start 05/30/16 at 09:30 Glucose (Glutose) 15 gm Q15M PRN PO DECREASED GLUCOSE; Start 05/30/16 at 09:30 Glucose (Glutose) 22.5 gm Q15M PRN PO DECREASED GLUCOSE; Start 05/30/16 at 09: 30 Dextrose (D50w Syringe) 25 ml Q15M PRN IV DECREASED GLUCOSE; Start 05/30/16 at 09:30 Dextrose (D50w Syringe) 50 ml Q15M PRN IV DECREASED GLUCOSE; Start 05/30/16 at 09:30 Glucagon (Glucagen) 1 mg Q15M PRN IM DECREASED GLUCOSE; Start 05/30/16 at 09:30 Glucose (Glutose) 15 gm Q15M PRN BUCCAL DECREASED GLUCOSE; Start 05/30/16 at 09 :30 Enoxaparin Sodium (Lovenox) 30 mg DAILY SC Last administered on 06/04/16 08:43 ; Admin Dose 30 MG; Start 05/30/16 at 09:30 Lactulose (Enulose) 10 gm DAILY PRN PO CONSTIPATION Last administered on 12:16; Admin Dose 10 GM; Start 06/01/16 at 10:30 Assessment/Plan Chief Complaint/Hosp Course 1. Left distal femoral fracture. The patient is status post open reduction internal fixation. Continue PT, OT. 2. Chronic kidney disease. Etiology is likely due to diabetes, hypertension. The patient's renal function appears to be stable around 2 mg/dL. The patient' s abdominal ultrasound shows bilateral renal cysts with no underlying change of parenchyma. The patient does have a protein creatinine ratio approximately 1.2 grams per gram of creatinine likely due to underlying CKD. The patient's SPEP UPEP had been negative. At this point, continue current treatment plan, supportive care, renally dose all meds, would consider introducing CHRISTOPHE inhibitor once renal function shows to be stable. 3. Mineral bone disorder. The patient is hypocalcemic. Etiology may be due to PTH mediated pathway. The patient's PTH level is 60, which is inappropriately elevated for hypercalcemia. Would consider possibly checking a parathyroid nuclear scan. We will continue to monitor calcium levels. As stated above, the patient's SPEP and UPEP were negative. Vitamin D levels were low. 4. Anemia of chronic disease. Continue to monitor H and H levels. 5. Diabetes. Continue current insulin regimen. Lantus was adjusted to avoid hypoglycemic episodes. 6. Hypertension. Continue current blood pressure regimen. 7. Obesity, continue dietary modification. 8. Elevated alkaline phosphatase, etiology appears to be hepatic in nature. The patient had elevated GGT. Abdominal ultrasound shows no hepatic pathology. Will continue to monitor LFTs. May consider a GI evaluation. GI, DVT prophylaxis. Continue proton pump inhibitor and Lovenox. Problems: MICAELA MUNOZ MD Jun 04, 2016 09:12
[2016-06-04 20:00] VITALS: BP 118/76; RESP 77
[2016-06-05] MEDS: ACCUCHECK XX SCH (02:00)
[2016-06-05] MEDS: PANTOPRAZOLE (EC) 40 MG TAB PO SCH (06:18)
[2016-06-05 07:30] VITALS: BP 135/75; RESP 18
[2016-06-05] MEDS: ENOXAPARIN 30 MG/0.3 ML SYG SC SCH (08:20)
[2016-06-05] MEDS: INSULIN ASPART [NOVOLOG] 3 ML PEN SC SCH ×4 (08:21→20:41)
[2016-06-05] MEDS: LINAGLIPTIN 5 MG TABLET PO SCH (08:21)
[2016-06-05] MEDS: METOPROLOL 100 MG TAB PO SCH (08:22)
--- NOTE | 2016-06-05 10:40 | PN ---
DATE: SUBJECTIVE: The patient is stable, no acute events overnight. No fevers, chills, nausea/vomiting, no shortness of breath. OBJECTIVE: VITAL SIGNS: Blood pressure is 135/75, respirations 18, pulse 79, temperature 98.4. HEENT: Head is normocephalic. NECK: Supple. HEART: Regular rate. LUNGS: Show diminished breath sounds at base. ABDOMEN: Soft, nontender to palpation without rebound or guarding. EXTREMITIES: Negative for clubbing, cyanosis, no edema. DERMATOLOGIC: No rashes. MUSCULOSKELETAL: No joint effusions. NEUROLOGIC: No change in exam. MEDICATIONS: Have been reviewed. LABORATORY DATA: Has been reviewed. No new labs. ASSESSMENT AND PLAN: 1. Left distal femoral fracture. The patient is status post open reduction internal fixation. Con tinue physical therapy. 2. Chronic kidney disease. Etiology is likely due to diabetes, hypertension. The patient's renal function appears to be stabilized around a creatinine of 2.0 mg/dL. At this point, continue current treatment plan, supportive care, renally dose all meds, avoid nephrotoxins. 3. Mineral bone disorder. The patient has mild hypercalcemia which etiology may be secondary to PT H pathway. The patient's PTH level is 60, which is inappropriately elevated for underlying hy pocalcemia. At this point, would be to repeat a calcium level. If it remains elevated, will consid er an endocrine evaluation and/or parathyroid nuclear scan. We will continue to monitor. 5. Anemia of chronic disease. Continue to monitor hemoglobin and hematocrit levels. 6. Diabetes. Continue current insulin regimen. Continue Lantus. 7. Hypertension. Continue current blood pressure regimen. 8. Obesity. Continue dietary modification. 9. Elevated alkaline phosphatase, etiology appears to be hepatic in nature given the patient's elev ated GGT. The patient's abdominal ultrasound showed no pathology. Continue to monitor LFTs. Consi guillermo a GI evaluation. Dictated By: OMER TEMPLE/MARY Conf#: [id number] DID#: [id number]
--- NOTE | 2016-06-05 13:15 | CONS ---
Date/Time of Note Date/Time of Note DATE: 06/05/16 TIME: 13:14 Consult Date/Type/Reason Admit Date/Time May 29, 2016 at 20:24 Type of Consultation: medicine Subjective Feeling well Objective Vital Signs Date Time Temp Pulse Resp B/P Pulse Ox O2 Delivery O2 Flow Rate FiO2 06/05/16 07:30 98.4 79 18 135/75 92 06/04/16 08:00 Room Air Intake and Output 06/04/16 06/04/16 06/05/16 15:00 23:00 07:00 Intake Total 840 ml Output Total 1000 ml 1200 ml Balance -160 ml -1200 ml INTERDISCIPLINARY TEAM CONFERENCE BOWEL- Cont BLADDER-Cont SKIN- intact OT- DRESSING-min/mod BATHING-min/mod TOILETING-mod PT- BED MOBILITY-min TRANSFERS-min AMBULATION-min 30 feet A/P- Interdisciplinary team conference held today. Please see interdisciplinary sheet. Working toward d.c. on 06/12 with post discharge follow up of physical therapy, occupational therapy. Results/Medications Result Diagram: 06/03/16 0610 Results 24 hrs Laboratory Tests Test 06/04/16 16:53 06/04/16 20:26 06/05/16 07:30 06/05/16 12:16 Bedside Glucose 149 174 220 225 H Medications Current Medications Acetaminophen/ Hydrocodone Bitart ([place] (5/325)) 1 tab Q4H PRN PO Moderate Pain 4-7 / 10 Last administered on 05/30/16 06:32; Admin Dose 1 TAB; Start at 22:00 Bisacodyl (Dulcolax Supp) 10 mg DAILY PRN [place] CONSTIPATION; Start 05/29/16 at 22 :00 Metoprolol Tartrate (Lopressor) 100 mg DAILY PO Last administered on 06/05/16 08:22; Admin Dose 100 MG; Start 05/30/16 at 09:00 Pantoprazole (Protonix Tab) 40 mg DAILY@06 PO Last administered on 06/05/16 06: 18; Admin Dose 40 MG; Start 05/30/16 at 06:00 Tramadol HCl (Ultram) 100 mg Q4 PRN PO PAIN; Start 05/29/16 at 22:00 Linagliptin (Tradjenta) 5 mg DAILY PO Last administered on 2/6/17at 08:21; Admin Dose 5 MG; Start 05/30/16 at 09:00 Diagnostic Test (Pha) (Accucheck) 1 ea 02 XX ; Start 05/31/16 at 02:00 Miscellaneous Information 1 ea NOTE XX ; Start 05/30/16 at 09:30 Glucose (Glutose) 15 gm Q15M PRN PO DECREASED GLUCOSE; Start 05/30/16 at 09:30 Glucose (Glutose) 22.5 gm Q15M PRN PO DECREASED GLUCOSE; Start 05/30/16 at 09: 30 Dextrose (D50w Syringe) 25 ml Q15M PRN IV DECREASED GLUCOSE; Start 05/30/16 at 09:30 Dextrose (D50w Syringe) 50 ml Q15M PRN IV DECREASED GLUCOSE; Start 05/30/16 at 09:30 Glucagon (Glucagen) 1 mg Q15M PRN IM DECREASED GLUCOSE; Start 05/30/16 at 09:30 Glucose (Glutose) 15 gm Q15M PRN BUCCAL DECREASED GLUCOSE; Start 05/30/16 at 09 :30 Enoxaparin Sodium (Lovenox) 30 mg DAILY SC Last administered on 06/05/16 08:20 ; Admin Dose 30 MG; Start 05/30/16 at 09:30 Lactulose (Enulose) 10 gm DAILY PRN PO CONSTIPATION Last administered on 12:16; Admin Dose 10 GM; Start 06/01/16 at 10:30 PATI PEREZ MD Jun 05, 2016 13:15 PATI PEREZ MD Jun 05, 2016 13:15
[2016-06-05 21:11] VITALS: BP 128/71; RESP 18
[2016-06-06] MEDS: ACCUCHECK XX SCH (01:52)
[2016-06-06] MEDS: PANTOPRAZOLE (EC) 40 MG TAB PO SCH (05:48)
[2016-06-06 07:28] LABS: BASOPHILS % 0.2 % (0.0-2.0); EOSINOPHILS # 0.2 10^3/ul (0.0-0.5); EOSINOPHILS % 2.6 % (0.0-7.0); HEMATOCRIT 37.7 % (42.0-52.0); HEMOGLOBIN 12.7 g/dl (14.0-18.0); LYMPHOCYTES # 1.2 10^3/ul (0.8-2.9); LYMPHOCYTES % 14.6 % (15.0-51.0); MEAN CORPUSCULAR HEMOGLOBIN 30.4 pg (29.0-33.0); MEAN CORPUSCULAR HGB CONC 33.6 g/dl (32.0-37.0); MEAN CORPUSCULAR VOLUME 90.7 fl (82.0-101.0); MONOCYTE # 0.7 10^3/ul (0.3-0.9); MONOCYTES % 7.8 % (0.0-11.0); NEUTROPHIL # 6.4 10^3/ul (1.6-7.5); NEUTROPHILS % 74.8 % (39.0-77.0); PLATELET COUNT 328 10^3/UL (140-440); RED BLOOD COUNT 4.16 10^6/ul (4.70-6.10); RED CELL DISTRIBUTION WIDTH 13.9 % (11.5-14.5); UNCORRECTED WBC 8.5 10^3/ul (4.8-10.8); WHITE BLOOD COUNT 8.5 10^3/ul (4.8-10.8)
[2016-06-06 07:49] VITALS: BP 146/77; RESP 18
[2016-06-06 07:49] LABS: CONDITION 1
[2016-06-06 07:51] LABS: POTASSIUM 4.6 mmol/L (3.5-5.1)
[2016-06-06 07:53] LABS: CREATININE 1.73 mg/dl (0.61-1.24)
[2016-06-06 07:54] LABS: ALBUMIN 3.2 g/dl (3.3-4.9); CALCIUM 10.6 mg/dl (8.4-10.2); MAGNESIUM 1.7 mg/dl (1.7-2.5); PHOSPHORUS 2.9 mg/dl (2.5-4.9)
[2016-06-06 07:57] LABS: BILIRUBIN,INDIRECT 0.4 mg/dl (0-1.1); BILIRUBIN,TOTAL 0.4 mg/dl (0.2-1.3); TOTAL PROTEIN 6.1 g/dl (6.1-8.1)
[2016-06-06] MEDS: HYDROCODONE/APAP (5/325) TAB PO PRN ×2 (08:21→12:12)
[2016-06-06] MEDS: LINAGLIPTIN 5 MG TABLET PO SCH (08:21)
[2016-06-06] MEDS: METOPROLOL 100 MG TAB PO SCH (08:22)
[2016-06-06] MEDS: ENOXAPARIN 30 MG/0.3 ML SYG SC SCH (08:29)
[2016-06-06] MEDS: INSULIN ASPART [NOVOLOG] 3 ML PEN SC SCH ×4 (08:29→21:06)
--- NOTE | 2016-06-06 11:49 | CONS ---
Date/Time of Note Date/Time of Note DATE: 06/06/16 TIME: 11:48 Consult Date/Type/Reason Admit Date/Time May 29, 2016 at 20:24 Type of Consultation: medicine Subjective No new complaints Objective pulm- cta cga 30 feet Vital Signs Date Time Temp Pulse Resp B/P Pulse Ox O2 Delivery O2 Flow Rate FiO2 06/06/16 07:49 98.4 73 18 146/77 94 06/04/16 08:00 Room Air Intake and Output 06/05/16 06/05/16 06/06/16 15:00 23:00 07:00 Intake Total 620 ml 620 ml Output Total 750 ml 350 ml Balance -130 ml 270 ml Results/Medications Result Diagram: 06/06/16 0600 06/06/16 0600 Results 24 hrs Laboratory Tests Test 06/05/16 12:16 06/05/16 16:53 06/05/16 20:12 06/06/16 01:39 Bedside Glucose 225 H 167 199 209 Test 06/06/16 06:00 06/06/16 07:18 Alanine Aminotransferase (ALT/SGPT) 38 Albumin 3.2 L Alkaline Phosphatase 143 H Anion Gap 19 H Aspartate Amino Transf (AST/SGOT) 29 Basophils # 0.0 Basophils % 0.2 Blood Urea Nitrogen 30 H Calcium Level 10.6 H Carbon Dioxide Level 19 L Chloride Level 108 Creatinine 1.73 H Direct Bilirubin 0.00 Eosinophils # 0.2 Eosinophils % 2.6 Glucose Level 214 Hematocrit 37.7 L Hemoglobin 12.7 L Indirect Bilirubin 0.4 Lymphocytes # 1.2 Lymphocytes % 14.6 L Magnesium Level 1.7 Mean Corpuscular Hemoglobin 30.4 Mean Corpuscular Hemoglobin Concent 33.6 Mean Corpuscular Volume 90.7 Mean Platelet Volume 9.0 Monocytes # 0.7 Monocytes % 7.8 Neutrophils # 6.4 Neutrophils % 74.8 Nucleated Red Blood Cells # 0.0 Nucleated Red Blood Cells % 0.0 Phosphorus Level 2.9 Platelet Count 328 # Potassium Level 4.6 Red Blood Count 4.16 L Red Cell Distribution Width 13.9 Sodium Level 141 Total Bilirubin 0.4 Total Protein 6.1 White Blood Count 8.5 Bedside Glucose 192 Medications Current Medications Acetaminophen/ Hydrocodone Bitart ([place] (5/325)) 1 tab Q4H PRN PO Moderate Pain 4-7 Last administered on 06/06/16 08:21; Admin Dose 1 TAB; Start 05/29 at 22:00 Bisacodyl (Dulcolax Supp) 10 mg DAILY PRN [place] CONSTIPATION; Start 05/29/16 at 22 :00 Metoprolol Tartrate (Lopressor) 100 mg DAILY PO Last administered on 06/06/16 08:22; Admin Dose 100 MG; Start 05/30/16 at 09:00 Pantoprazole (Protonix Tab) 40 mg DAILY@06 PO Last administered on 06/06/16 05: 48; Admin Dose 40 MG; Start 05/30/16 at 06:00 Tramadol HCl (Ultram) 100 mg Q4 PRN PO PAIN; Start 05/29/16 at 22:00 Linagliptin (Tradjenta) 5 mg DAILY PO Last administered on 06/06/16 08:21; Admin Dose 5 MG; Start 05/30/16 at 09:00 Diagnostic Test (Pha) (Accucheck) 1 ea 02 XX Last administered on 06/06/16 01: 52; Admin Dose 1 EA; Start 05/31/16 at 02:00 Miscellaneous Information 1 ea NOTE XX ; Start 05/30/16 at 09:30 Glucose (Glutose) 15 gm Q15M PRN PO DECREASED GLUCOSE; Start 05/30/16 at 09:30 Glucose (Glutose) 22.5 gm Q15M PRN PO DECREASED GLUCOSE; Start 05/30/16 at 09: 30 Dextrose (D50w Syringe) 25 ml Q15M PRN IV DECREASED GLUCOSE; Start 05/30/16 at 09:30 Dextrose (D50w Syringe) 50 ml Q15M PRN IV DECREASED GLUCOSE; Start 05/30/16 at 09:30 Glucagon (Glucagen) 1 mg Q15M PRN IM DECREASED GLUCOSE; Start 05/30/16 at 09:30 Glucose (Glutose) 15 gm Q15M PRN BUCCAL DECREASED GLUCOSE; Start 05/30/16 at 09 :30 Enoxaparin Sodium (Lovenox) 30 mg DAILY SC Last administered on 06/06/16 08:29 ; Admin Dose 30 MG; Start 05/30/16 at 09:30 Lactulose (Enulose) 10 gm DAILY PRN PO CONSTIPATION Last administered on 12:16; Admin Dose 10 GM; Start 06/01/16 at 10:30 Assessment/Plan Additional Assessment/Plan Rehab- Left femur fracture with a comminuted fracture at the distal femoral metaphysis, status post ORIF. Steady progress, continue treatment plan GI- continue bowel program Diabetes mellitus type 2. Hypertension. Acute pain syndrome-improved PATI PEREZ MD Jun 06, 2016 11:49
--- NOTE | 2016-06-06 12:29 | PN ---
DATE: 06/06/2016 SUBJECTIVE: The patient is stable, no acute events overnight. No fevers, chills, nausea, vomiting, no shortness of breath. OBJECTIVE: VITAL SIGNS: Blood pressure is 146/77, respirations 18, pulse 73, temperature 98.4. HEENT: Head is normocephalic. NECK: Supple. HEART: Regular rate. LUNGS: Show diminished breath sounds at the base. ABDOMEN: Soft, nontender to palpation, no rebound or guarding. EXTREMITIES: Negative for clubbing, cyanosis, no edema. DERMATOLOGIC: No rashes. MUSCULOSKELETAL: No joint effusions. NEUROLOGIC: No change in exam. MEDICATIONS: The patient's medications have been reviewed. LABORATORY DATA: Shows sodium 141, potassium 4.6, chloride 0.08, BUN 30, creatinine 1.73, calcium 7 .6. White count 8.5, hemoglobin 12.7, hematocrit of 37.7, platelet count is 320. ASSESSMENT AND PLAN: 1. Left distal femoral fracture. The patient is status post open reduction internal fixation. Cur rently stable. Continue physical therapy, occupational therapy, continue pain control. 2. Nonoliguric acute kidney injury on top of chronic kidney disease. Etiology of acute kidney inju ry is likely hemodynamics. Renal function has been slowly improving. Continue current treatment pl an, supportive care, renally dose all meds, avoid nephrotoxins. 3. Chronic kidney disease. Etiology is likely due to diabetes, hypertension. The patient is curre ntly in acute kidney injury as stated above. Continue disease factor modification, monitor. 4. Hypercalcemia, etiology is concerning for possible primary hyperparathyroidism. The patient's P TH levels are within normal limits which is inappropriately elevated for the patient's underlying hy percalcemia. Would consider an endocrine evaluation and/or a parathyroid nuclear scan. Continue to monitor closely. 5. Anemia of chronic disease. Continue to monitor H and H levels. 6. Diabetes. Continue Accu-Cheks and insulin sliding scale. Continue Lantus. 7. Hypertension. Continue current blood pressure regimen. 8. Obesity. Continue dietary modification. 9. Elevated alkaline phosphatase, etiology appears to be hepatic in nature. The patient's abdomina l ultrasound showed no pathology. Alkaline phosphatase levels are improving. Will continue to elma tor. Consider a GI evaluation. Dictated By: OMER TEMPLE/MARY Conf#: [id number] [facility]#: [id number]
[2016-06-06 20:00] VITALS: BP 132/60; RESP 19
[2016-06-07] MEDS: ACCUCHECK XX SCH (02:30)
[2016-06-07] MEDS: PANTOPRAZOLE (EC) 40 MG TAB PO SCH (06:48)
[2016-06-07 08:10] VITALS: BP 123/64; RESP 16
[2016-06-07] MEDS: METOPROLOL 100 MG TAB PO SCH (08:26)
[2016-06-07] MEDS: LINAGLIPTIN 5 MG TABLET PO SCH (08:26)
[2016-06-07] MEDS: INSULIN ASPART [NOVOLOG] 3 ML PEN SC SCH ×4 (08:27→20:17)
[2016-06-07] MEDS: ENOXAPARIN 30 MG/0.3 ML SYG SC SCH (08:28)
[2016-06-07] MEDS: HYDROCODONE/APAP (5/325) TAB PO PRN ×2 (10:13→19:52)
[2016-06-07] MEDS ORDERED: MAGNESIUM HYDROXIDE 30ML CUP PO PRN (11:00)
--- NOTE | 2016-06-07 11:15 | CONS ---
Date/Time of Note Date/Time of Note DATE: 06/07/16 TIME: 11:12 Consult Date/Type/Reason Admit Date/Time May 29, 2016 at 20:24 Type of Consultation: medicine Subjective Overall feeling better. Does report some constipation Objective pulm- cta abd-soft cga ambulation 30 feet Vital Signs Date Time Temp Pulse Resp B/P Pulse Ox O2 Delivery O2 Flow Rate FiO2 06/07/16 08:10 97.7 84 16 123/64 96 06/04/16 08:00 Room Air Intake and Output 06/06/16 06/06/16 06/07/16 15:00 23:00 07:00 Intake Total 480 ml 360 ml 550 ml Output Total 350 ml 250 ml Balance 130 ml 110 ml 550 ml Results/Medications Result Diagram: 06/06/16 0600 06/06/16 0600 Results 24 hrs Laboratory Tests Test 06/06/16 11:43 06/06/16 17:07 06/06/16 21:02 06/07/16 02:22 Bedside Glucose 246 H 225 H 192 201 Test 06/07/16 07:50 Bedside Glucose 199 Medications Current Medications Acetaminophen/ Hydrocodone Bitart ([place] (5/325)) 1 tab Q4H PRN PO Moderate Pain - Last administered on 06/07/16 10:13; Admin Dose 1 TAB; Start 05/29 at 22:00 Bisacodyl (Dulcolax Supp) 10 mg DAILY PRN [place] CONSTIPATION; Start 05/29/16 at 22 :00 Metoprolol Tartrate (Lopressor) 100 mg DAILY PO Last administered on 06/07/16 08:26; Admin Dose 100 MG; Start 05/30/16 at 09:00 Pantoprazole (Protonix Tab) 40 mg DAILY@06 PO Last administered on 06/07/16 06: 48; Admin Dose 40 MG; Start 05/30/16 at 06:00 Tramadol HCl (Ultram) 100 mg Q4 PRN PO PAIN Last administered on 06/06/16 18:50 ; Admin Dose 100 MG; Start 05/29/16 at 22:00 Linagliptin (Tradjenta) 5 mg DAILY PO Last administered on 06/07/16 08:26; Admin Dose 5 MG; Start 05/30/16 at 09:00 Diagnostic Test (Pha) (Accucheck) 1 ea 02 XX Last administered on 06/07/16 02: 30; Admin Dose 1 EA; Start 05/31/16 at 02:00 Miscellaneous Information 1 ea NOTE XX ; Start 05/30/16 at 09:30 Glucose (Glutose) 15 gm Q15M PRN PO DECREASED GLUCOSE; Start 05/30/16 at 09:30 Glucose (Glutose) 22.5 gm Q15M PRN PO DECREASED GLUCOSE; Start 05/30/16 at 09: 30 Dextrose (D50w Syringe) 25 ml Q15M PRN IV DECREASED GLUCOSE; Start 05/30/16 at 09:30 Dextrose (D50w Syringe) 50 ml Q15M PRN IV DECREASED GLUCOSE; Start 05/30/16 at 09:30 Glucagon (Glucagen) 1 mg Q15M PRN IM DECREASED GLUCOSE; Start 05/30/16 at 09:30 Glucose (Glutose) 15 gm Q15M PRN BUCCAL DECREASED GLUCOSE; Start 05/30/16 at 09 :30 Enoxaparin Sodium (Lovenox) 30 mg DAILY SC Last administered on 06/07/16 08:28 ; Admin Dose 30 MG; Start 05/30/16 at 09:30 Lactulose (Enulose) 10 gm DAILY PRN PO CONSTIPATION Last administered on 12:16; Admin Dose 10 GM; Start 06/01/16 at 10:30 Docusate Sodium (Colace) 100 mg BID PO ; Start 06/07/16 at 12:00 Senna (Senokot) 1 tab HS PO ; Start 06/07/16 at 21:00 Magnesium Hydroxide (Milk Of Mag) 30 ml BID PRN PO CONSTIPATION; Start 06/07/16 at 11:00 Assessment/Plan Additional Assessment/Plan Rehab- Left femur fracture with a comminuted fracture at the distal femoral metaphysis, status post ORIF. Continue rehab activities, excellent progress GI- continue bowel program Diabetes mellitus type 2. Hypertension. Acute pain syndrome-improved PATI PEREZ MD Jun 07, 2016 11:15
--- NOTE | 2016-06-07 11:56 | PN ---
DATE: 06/07/2016 SUBJECTIVE: The patient is stable. No acute events overnight. No fevers, chills, nausea, vomiting, shortness of breath. OBJECTIVE: VITAL SIGNS: Blood pressure 132/60, respiration 19, pulse 74, temperature 98.1. HEENT: Head is normocephalic. NECK: Supple. HEART: Regular rate. LUNGS: Show diminished breath sounds at the base. ABDOMEN: Soft, nontender to palpation. No rebound or guarding. EXTREMITIES: Negative for clubbing, cyanosis. No edema. DERMATOLOGIC: No rashes. MUSCULOSKELETAL: No joint effusions. NEUROLOGIC: No change in exam. MEDICATIONS: The patient's medications have been reviewed. LABORATORY DATA: Have been reviewed. No new labs. ASSESSMENT AND PLAN: 1. Left distal femoral fracture. The patient is status post open reduction internal fixation. Nitesh lindo current treatment plan, physical therapy and occupational therapy. 2. Nonoliguric acute kidney injury on top of chronic kidney disease. Etiology is likely hemodynami cs. Renal function has slowly been improving. Continue ____, renally dose all meds, avoid nephroto xins. 3. Chronic kidney disease, likely due to diabetes, hypertension. Continue disease factor modificat ion. 4. Hypercalcemia, etiology is concerning for possible primary hypoparathyroidism. Other possibilit ies include familial hypocalciuric, hypercalcemia. The patient's PTH levels were within normal limi ts which is inappropriately elevated for patient's underlying hypercalcemia. Additionally, the umesh ent does have vitamin D deficiency. Plan is to continue evaluation. We will check a parathyroid ho rmone related peptide. Also, check a fractional excretion of calcium to help distinguish between FH H versus primary hyperparathyroidism. An endocrine consult and a parathyroid nuclear scan is also b eing considered. We will continue to monitor closely calcium levels. 5. Anemia of chronic disease. Continue to monitor hemoglobin and hematocrit levels. 6. Diabetes, continue Accu-Cheks and sliding scale. Continue Lantus and adjust insulin as needed. 7. Hypertension. Continue current blood pressure regimen. 8. Obesity. Continue dietary modification. 9. Elevated alkaline phosphatase, likely hepatic in nature. The patient's LFTs have been improving . Continue to monitor. The patient's alkaline phosphatase has been improving. Continue to monitor . Dictated By: OMER TEMPLE/MARY Conf#: [id number] [facility]#: [id number]
[2016-06-07] MEDS: DOCUSATE SODIUM 100 MG CAP PO SCH ×2 (13:29→20:11)
[2016-06-07] MEDS: SENNA TAB PO SCH (20:11)
[2016-06-07 21:41] VITALS: BP_SYST 122; BP_SYST 132; BP_DIAS 69; BP_DIAS 71; RESP 18
[2016-06-08] MEDS: ACCUCHECK XX SCH (02:00)
[2016-06-08] MEDS: PANTOPRAZOLE (EC) 40 MG TAB PO SCH (06:23)
[2016-06-08 06:57] LABS: BASOPHILS % 0.5 % (0.0-2.0); EOSINOPHILS # 0.2 10^3/ul (0.0-0.5); EOSINOPHILS % 2.9 % (0.0-7.0); HEMATOCRIT 36.6 % (42.0-52.0); LYMPHOCYTES # 1.2 10^3/ul (0.8-2.9); LYMPHOCYTES % 17.6 % (15.0-51.0); MEAN CORPUSCULAR HEMOGLOBIN 29.6 pg (29.0-33.0); MEAN CORPUSCULAR HGB CONC 32.9 g/dl (32.0-37.0); MEAN CORPUSCULAR VOLUME 90.2 fl (82.0-101.0); MEAN PLATELET VOLUME 8.9 fl (7.4-10.4); MONOCYTE # 0.5 10^3/ul (0.3-0.9); MONOCYTES % 8.2 % (0.0-11.0); NEUTROPHIL # 4.7 10^3/ul (1.6-7.5); NEUTROPHILS % 70.8 % (39.0-77.0); PLATELET COUNT 299 10^3/UL (140-440); RED BLOOD COUNT 4.06 10^6/ul (4.70-6.10); RED CELL DISTRIBUTION WIDTH 13.5 % (11.5-14.5); UNCORRECTED WBC 6.7 10^3/ul (4.8-10.8); WHITE BLOOD COUNT 6.7 10^3/ul (4.8-10.8)
[2016-06-08 07:15] LABS: CONDITION 1
[2016-06-08 07:39] LABS: POTASSIUM 4.3 mmol/L (3.5-5.1)
[2016-06-08 07:41] LABS: CREATININE 1.91 mg/dl (0.61-1.24)
[2016-06-08 07:42] LABS: CALCIUM 10.1 mg/dl (8.4-10.2); MAGNESIUM 1.5 mg/dl (1.7-2.5); PHOSPHORUS 3.1 mg/dl (2.5-4.9)
[2016-06-08 08:00] VITALS: BP 115/67; PULSE 86; RESP 18
[2016-06-08] MEDS: METOPROLOL 100 MG TAB PO SCH (09:00)
[2016-06-08] MEDS: DOCUSATE SODIUM 100 MG CAP PO SCH ×2 (09:25→22:03)
[2016-06-08] MEDS: LINAGLIPTIN 5 MG TABLET PO SCH (09:25)
[2016-06-08] MEDS: INSULIN ASPART [NOVOLOG] 3 ML PEN SC SCH ×4 (09:29→22:08)
[2016-06-08] MEDS ORDERED: MAGNESIUM OXIDE 400 MG TAB PO ONE (09:30)
[2016-06-08] MEDS: ENOXAPARIN 30 MG/0.3 ML SYG SC SCH (09:30)
--- NOTE | 2016-06-08 10:59 | PN ---
DATE: SUBJECTIVE: The patient is stable. No acute events overnight. No fevers, chills, nausea or vomiti ng. No shortness of breath. LABORATORY DATA: Shows sodium 139, potassium 4.3, chloride 106, bicarbonate 20, BUN 31, creatinine 1.91, glucose is 238. Magnesium 1.5. White count 6.7, hemoglobin 12.0, hematocrit 36.6, platelet c ount 299. ASSESSMENT AND PLAN: 1. Left distal femoral fracture. The patient is status post open reduction and internal fixation. At this point, will continue the current treatment plan. Continue physical therapy and occupationa l therapy. 2. Nonoliguric acute kidney injury on top of chronic kidney disease. Etiology is likely hemodynami cs. Renal function appears to have stabilized around a creatinine of 2 mg/dL. Continue the current treatment plan, supportive care, and renally dose medications. 3. Chronic kidney disease, stage IIIB. Etiology is likely due to diabetes and hypertension. At th is point, continue disease factor modification and good glycemic blood pressure control. 4. Hypercalcemia. Etiology is unclear, possibly primary hyperparathyroidism versus familial hypoca lciuric hypercalcemia. The patient's PTH levels were within normal limits, which was inappropriatel y elevated for underlying hypercalcemia. The patient initially does have vitamin D deficiency. Shemar n at this point is to continue evaluation. Will check a parathyroid hormone related peptide. Will a lso check a fractional excretion of calcium to help distinguish between FHH versus primary hyperpara thyroidism. Would consider an endocrine consult to monitor. 5. Diabetes. The patient's glucose levels remain elevated. Will increase Lantus to 55 units. Con tinue the current insulin regimen. Will also place an endocrine consult for evaluation. 6. Anemia. Continue to monitor hemoglobin and hematocrit levels. 7. Hypertension. Continue the current blood pressure regimen. 8. Obesity. Continue dietary modification. 9. Elevated alkaline phosphatase. Etiology was hepatic in nature. Alkaline phosphatase levels hav e been improving. Continue to monitor. 10. Hypomagnesemia. Will replete with magnesium sulfate. Dictated By: OMER TEMPLE/MARY Conf#: [id number] DID#: [id number]
[2016-06-08] MEDS: INSULIN GLARGINE [LANtus] 3 ML PEN SC SCH (12:39)
--- NOTE | 2016-06-08 12:52 | CONS ---
Date/Time of Note Date/Time of Note DATE: 06/08/16 TIME: 12:51 Consult Date/Type/Reason Admit Date/Time May 29, 2016 at 20:24 Type of Consultation: medicine Subjective Patient comfortable Objective pulm- cta cga ambulation 150 Vital Signs Date Time Temp Pulse Resp B/P Pulse Ox O2 Delivery O2 Flow Rate FiO2 06/08/16 08:00 98.0 86 18 115/67 97 Room Air Intake and Output 06/07/16 06/07/16 06/08/16 15:00 23:00 07:00 Intake Total 870 ml 360 ml 320 ml Output Total 650 ml 300 ml 1100 ml Balance 220 ml 60 ml -780 ml Results/Medications Result Diagram: 06/08/16 0616 06/08/16 0616 Results 24 hrs Laboratory Tests Test 06/07/16 15:20 06/07/16 17:15 06/08/16 06:16 06/08/16 07:46 Urine Random Creatinine 80.23 Urine Random Sodium 43 Bedside Glucose 198 256 H Anion Gap 17 H Basophils # 0.0 Basophils % 0.5 Blood Urea Nitrogen 31 H Calcium Level 10.1 Carbon Dioxide Level 20 L Chloride Level 106 Creatinine 1.91 H Eosinophils # 0.2 Eosinophils % 2.9 Glucose Level 238 H Hematocrit 36.6 L Hemoglobin 12.0 L Lymphocytes # 1.2 Lymphocytes % 17.6 Magnesium Level 1.5 L Mean Corpuscular Hemoglobin 29.6 Mean Corpuscular Hemoglobin Concent 32.9 Mean Corpuscular Volume 90.2 Mean Platelet Volume 8.9 Monocytes # 0.5 Monocytes % 8.2 Neutrophils # 4.7 Neutrophils % 70.8 Nucleated Red Blood Cells # 0.0 Nucleated Red Blood Cells % 0.0 Phosphorus Level 3.1 Platelet Count 299 Potassium Level 4.3 Red Blood Count 4.06 L Red Cell Distribution Width 13.5 Sodium Level 139 White Blood Count 6.7 # Test 06/08/16 12:14 Bedside Glucose 242 H Medications Current Medications Acetaminophen/ Hydrocodone Bitart ([place] (5/325)) 1 tab Q4H PRN PO Moderate Pain 4-7 / 10 Last administered on 06/07/16t 19:52; Admin Dose 1 TAB; Start 05/29 at 22:00 Bisacodyl (Dulcolax Supp) 10 mg DAILY PRN [place] CONSTIPATION; Start 05/29/16 at 22 :00 Metoprolol Tartrate (Lopressor) 100 mg DAILY PO Last administered on 06/07/16 08:26; Admin Dose 100 MG; Start 05/30/16 at 09:00 Pantoprazole (Protonix Tab) 40 mg DAILY@06 PO Last administered on 06/08/16 06: 23; Admin Dose 40 MG; Start 05/30/16 at 06:00 Tramadol HCl (Ultram) 100 mg Q4 PRN PO PAIN Last administered on 06/06/16 18:50 ; Admin Dose 100 MG; Start 05/29/16 at 22:00 Linagliptin (Tradjenta) 5 mg DAILY PO Last administered on 06/08/16 09:25; Admin Dose 5 MG; Start 05/30/16 at 09:00 Diagnostic Test (Pha) (Accucheck) 1 ea 02 XX Last administered on 06/07/16 02: 30; Admin Dose 1 EA; Start 05/31/16 at 02:00 Miscellaneous Information 1 ea NOTE XX ; Start 05/30/16 at 09:30 Glucose (Glutose) 15 gm Q15M PRN PO DECREASED GLUCOSE; Start 05/30/16 at 09:30 Glucose (Glutose) 22.5 gm Q15M PRN PO DECREASED GLUCOSE; Start 05/30/16 at 09: 30 Dextrose (D50w Syringe) 25 ml Q15M PRN IV DECREASED GLUCOSE; Start 05/30/16 at 09:30 Dextrose (D50w Syringe) 50 ml Q15M PRN IV DECREASED GLUCOSE; Start 05/30/16 at 09:30 Glucagon (Glucagen) 1 mg Q15M PRN IM DECREASED GLUCOSE; Start 05/30/16 at 09:30 Glucose (Glutose) 15 gm Q15M PRN BUCCAL DECREASED GLUCOSE; Start 05/30/16 at 09 :30 Enoxaparin Sodium (Lovenox) 30 mg DAILY SC Last administered on 06/08/16 09:30 ; Admin Dose 30 MG; Start 05/30/16 at 09:30 Lactulose (Enulose) 10 gm DAILY PRN PO CONSTIPATION Last administered on 12:16; Admin Dose 10 GM; Start 06/01/16 at 10:30 Docusate Sodium (Colace) 100 mg BID PO Last administered on 06/08/16 09:25; Admin Dose 100 MG; Start 06/07/16 at 12:00 Senna (Senokot) 1 tab HS PO Last administered on 06/07/16 20:11; Admin Dose 1 TAB; Start 06/07/16 at 21:00 Magnesium Hydroxide (Milk Of Mag) 30 ml BID PRN PO CONSTIPATION Last administered on 06/07/16 20:11; Admin Dose 30 ML; Start 06/07/16 at 11:00 Insulin Glargine (Lantus) 15 unit DAILY@08 SC Last administered on 06/08/16 12: 39; Admin Dose 15 UNIT; Start 06/08/16 at 10:00 Assessment/Plan Additional Assessment/Plan Rehab- Left femur fracture with a comminuted fracture at the distal femoral metaphysis, status post ORIF. Continue rehab activities GI- continue bowel program Diabetes mellitus type 2. Hypertension. Acute pain syndrome-improved PATI PEREZ MD Jun 08, 2016 12:52
[2016-06-08 20:00] VITALS: BP_SYST 132; BP_SYST 139; BP_DIAS 80; BP_DIAS 81; PULSE 82; RESP 18
[2016-06-08] MEDS: SENNA TAB PO SCH (22:00)
[2016-06-09] MEDS: ACCUCHECK XX SCH (02:30)
[2016-06-09] MEDS: PANTOPRAZOLE (EC) 40 MG TAB PO SCH (05:22)
[2016-06-09 06:54] LABS: POTASSIUM 4.3 mmol/L (3.5-5.1)
[2016-06-09 06:57] LABS: CREATININE 1.73 mg/dl (0.61-1.24)
[2016-06-09 06:58] LABS: CALCIUM 10.4 mg/dl (8.4-10.2); MAGNESIUM 1.6 mg/dl (1.7-2.5); PHOSPHORUS 2.9 mg/dl (2.5-4.9)
[2016-06-09 08:00] VITALS: BP 125/70; RESP 18
[2016-06-09] MEDS ORDERED: INSULIN GLARGINE [LANtus] 3 ML PEN SC SCH (08:00)
[2016-06-09] MEDS: INSULIN ASPART [NOVOLOG] 3 ML PEN SC SCH ×4 (08:21→20:40)
[2016-06-09] MEDS: INSULIN GLARGINE [LANtus] 3 ML PEN SC SCH (08:22)
[2016-06-09] MEDS: ENOXAPARIN 30 MG/0.3 ML SYG SC SCH (08:23)
[2016-06-09] MEDS: DOCUSATE SODIUM 100 MG CAP PO SCH ×2 (08:23→20:36)
[2016-06-09] MEDS: LINAGLIPTIN 5 MG TABLET PO SCH (08:24)
[2016-06-09] MEDS: METOPROLOL 100 MG TAB PO SCH (08:24)
[2016-06-09] MEDS ORDERED: MAGNESIUM OXIDE 400 MG TAB PO ONE ×3 (09:30→17:30)
--- NOTE | 2016-06-09 10:55 | PN ---
DATE: 06/01/2016 SUBJECTIVE: The patient is stable, no acute events overnight. No fevers, chills, nausea, vomiting. No shortness of breath. No other acute events noted. OBJECTIVE: VITAL SIGNS: Blood pressure is 139/81, respiration 18, pulse 82, temperature 97.9. HEENT: Head is normocephalic. NECK: Supple. HEART: Regular rate. LUNGS: Show diminished breath sounds at the base. ABDOMEN: Soft, nontender to palpation. No rebound or guarding. EXTREMITIES: Negative for clubbing, cyanosis, no edema. DERMATOLOGIC: No rashes. MUSCULOSKELETAL: No joint effusions. NEUROLOGIC: No change in exam. MEDICATIONS: Reviewed. LABORATORY DATA: Shows sodium 141, potassium 4.3, chloride 108, BUN 29, creatinine 1.73, calcium is 10.4, magnesium 1.6. ASSESSMENT AND PLAN: 1. Left distal femoral fracture. The patient is status post open reduction internal fixation. The patient is currently stable. Continue PT, OT. 2. Nonoliguric acute kidney injury on top of chronic kidney disease. Etiology is hemodynamics. Clive al function appears to stabilize around a creatinine of 2.0 mg/dL. Continue current treatment plan, supportive care, renally dose all meds. 3. Chronic kidney disease, stage IIIB. Etiology is likely from diabetes, hypertension. The patien t has noted proteinuria on protein creatinine ratio. At this point, continue disease factor modific ations of good blood pressure and glycemic control. 4. Hypercalcemia, etiology is unclear, possible primary hyperparathyroidism versus familial hypocal cemia, uric hypocalcemia. The patient's PTH levels are within normal limits which is inappropriatel y elevated for underlying hypocalcemia. The patient does have vitamin D deficiency. The patient's parathyroid related peptide hormone is pending and attempting to also obtain a fractional excretion of calcium to help distinguish between FHH versus primary hyperparathyroidism. Will also place an e Hipbone consult for Dr. Mallory for evaluation. 5. Diabetes. The patient's glucose levels remain elevated. We will increase Lantus to 20 units schilling bq daily. Will continue oral medications of Tradjenta. Continue insulin sliding scale. We will fo llow up with endocrinology for recommendations. 6. Anemia. Continue to monitor hemoglobin and hematocrit levels. 7. Hypertension. Continue current blood pressure regimen. 8. Obesity. Continue dietary modification. 9. Elevated alkaline phosphatase, etiology is likely hepatic in nature. The patient's GGT level is elevated. Alkaline phosphatase levels have been improving. Continue to monitor. 10. Hypomagnesemia, replete with magnesium sulfate. Dictated By: OMER TEMPLE/MARY Conf#: [id number] DID#: [id number]
--- NOTE | 2016-06-09 12:18 | CONS ---
Date/Time of Note Date/Time of Note DATE: 06/09/16 TIME: :17 Consult Date/Type/Reason Admit Date/Time May 29, 2016 at 20:24 Type of Consultation: medicine Subjective comfortable Objective pulm- cta sba ambulation Vital Signs Date Time Temp Pulse Resp B/P Pulse Ox O2 Delivery O2 Flow Rate FiO2 06/09/16 08:00 98.7 18 125/70 95 Room Air 06/08/16 20:00 82 Intake and Output 06/08/16 06/08/16 06/09/16 15:00 23:00 07:00 Intake Total 500 ml 300 ml Output Total 450 ml 900 ml Balance 50 ml -600 ml Results/Medications Result Diagram: 06/08/16 0616 06/09/16 0615 Results 24 hrs Laboratory Tests Test 06/08/16 17:31 06/08/16 20:35 06/09/16 02:18 06/09/16 06:15 Bedside Glucose 221 H 202 247 H Anion Gap 16 Blood Urea Nitrogen 29 H Calcium Level 10.4 H Carbon Dioxide Level 21 Chloride Level 108 Creatinine 1.73 H Glucose Level 260 H Magnesium Level 1.6 L Phosphorus Level 2.9 Potassium Level 4.3 Sodium Level 141 Test 06/09/16 07:54 06/09/16 12:06 Bedside Glucose 225 H 209 Medications Current Medications Acetaminophen/ Hydrocodone Bitart ([place] (5/325)) 1 tab Q4H PRN PO Moderate Pain - Last administered on 06/07/16 19:52; Admin Dose 1 TAB; Start 05/29 at 22:00 Bisacodyl (Dulcolax Supp) 10 mg DAILY PRN [place] CONSTIPATION; Start 05/29/16 at 22 :00 Metoprolol Tartrate (Lopressor) 100 mg DAILY PO Last administered on 06/09/16 08:24; Admin Dose 100 MG; Start 05/30/16 at 09:00 Pantoprazole (Protonix Tab) 40 mg DAILY@06 PO Last administered on 06/09/16 05 :22; Admin Dose 40 MG; Start 05/30/16 at 06:00 Tramadol HCl (Ultram) 100 mg Q4 PRN PO PAIN Last administered on 06/06/16 18:50 ; Admin Dose 100 MG; Start 05/29/16 at 22:00 Linagliptin (Tradjenta) 5 mg DAILY PO Last administered on 06/09/16 08:24; Admin Dose 5 MG; Start 05/30/16 at 09:00 Diagnostic Test (Pha) (Accucheck) 1 ea 02 XX Last administered on 06/07/16 02: 30; Admin Dose 1 EA; Start 05/31/16 at 02:00 Miscellaneous Information 1 ea NOTE XX ; Start 05/30/16 at 09:30 Glucose (Glutose) 15 gm Q15M PRN PO DECREASED GLUCOSE; Start 05/30/16 at 09:30 Glucose (Glutose) 22.5 gm Q15M PRN PO DECREASED GLUCOSE; Start 05/30/16 at 09: 30 Dextrose (D50w Syringe) 25 ml Q15M PRN IV DECREASED GLUCOSE; Start 05/30/16 at 09:30 Dextrose (D50w Syringe) 50 ml Q15M PRN IV DECREASED GLUCOSE; Start 05/30/16 at 09:30 Glucagon (Glucagen) 1 mg Q15M PRN IM DECREASED GLUCOSE; Start 05/30/16 at 09:30 Glucose (Glutose) 15 gm Q15M PRN BUCCAL DECREASED GLUCOSE; Start 05/30/16 at 09 :30 Enoxaparin Sodium (Lovenox) 30 mg DAILY SC Last administered on 06/09/16 08:23 ; Admin Dose 30 MG; Start 05/30/16 at 09:30 Lactulose (Enulose) 10 gm DAILY PRN PO CONSTIPATION Last administered on 12:16; Admin Dose 10 GM; Start 06/01/16 at 10:30 Docusate Sodium (Colace) 100 mg BID PO Last administered on 06/09/16 08:23; Admin Dose 100 MG; Start 06/07/16 at 12:00 Senna (Senokot) 1 tab HS PO Last administered on 06/07/16 20:11; Admin Dose 1 TAB; Start 06/07/16 at 21:00 Magnesium Hydroxide (Milk Of Mag) 30 ml BID PRN PO CONSTIPATION Last administered on 06/07/16 20:11; Admin Dose 30 ML; Start 06/07/16 at 11:00 Insulin Glargine (Lantus) 20 unit DAILY@08 SC ; Start 06/10/16 at 08:00 Magnesium Oxide (Mag-Ox 400) 400 mg ONCE ONCE PO ; Start 06/09/16 at 17:30; Stop 06/09/16 at 17:31 Assessment/Plan Additional Assessment/Plan Rehab- Left femur fracture with a comminuted fracture at the distal femoral metaphysis, status post ORIF. Continue rehab program. Working towards vt 06/15 GI- continue bowel program Diabetes mellitus type 2. Hypertension. Acute pain syndrome-improved PATI PEREZ MD Jun 09, 2016 12:18
[2016-06-09 20:34] VITALS: BP 132/73; RESP 18
[2016-06-09] MEDS: SENNA TAB PO SCH (20:36)
[2016-06-10] MEDS: ACCUCHECK XX SCH (02:00)
[2016-06-10] MEDS: PANTOPRAZOLE (EC) 40 MG TAB PO SCH (06:14)
[2016-06-10] MEDS: INSULIN ASPART [NOVOLOG] 3 ML PEN SC SCH ×4 (07:35→21:00)
[2016-06-10 08:00] VITALS: BP 120/75; PULSE 88; RESP 18
[2016-06-10] MEDS ORDERED: INSULIN GLARGINE [LANtus] 3 ML PEN SC SCH (08:00)
--- NOTE | 2016-06-10 11:20 | PN ---
DATE: 06/10/2016 SUBJECTIVE: The patient is stable, no acute events noted overnight, no hemoptysis, hematemesis or h ematochezia. Patient's sugars are elevated but improving. OBJECTIVE: VITAL SIGNS: Blood pressure is 132/73, respiration 18, pulse is 81, temperature 98.2. HEENT: Head is normocephalic. NECK: Supple. HEART: Regular rate. LUNGS: Show diminished breath sounds at base. ABDOMEN: Soft, nontender to palpation. No rebound or guarding. EXTREMITIES: Negative for clubbing, cyanosis, no edema. DERMATOLOGIC: No rashes. MUSCULOSKELETAL: No joint effusions. NEUROLOGIC: No change in exam. MEDICATIONS: The patient's medications reviewed. LABORATORY DATA: Currently pending. ASSESSMENT AND PLAN: 1. Left distal femoral fracture. The patient is status post open reduction internal fixation. Cur rently stable. Continue PT, OT. 2. Nonoliguric acute kidney injury on top of chronic kidney disease. Etiology of acute kidney inju ry was hemodynamics. Renal function appears to be stabilizing around a creatinine of 1.82 to 2.0 mg /dL. Continue current treatment plan, supportive care, renally dose all meds. 3. Chronic kidney disease, stage IIIB. Etiology from diabetes, hypertension. Continue disease fac tor modification as stated above. 4. Hypercalcemia, etiology is unclear, possibly primary hyperparathyroidism versus familial hypocal cemia. The patient's PTH levels within normal limits which is inappropriately elevated for underlyi ng hypercalcemia. The patient's parathyroid related peptide hormone is pending. A fractional excre tion of calcium is also pending to help distinguish between FHH versus primary hyperparathyroidism. An endocrine consult was also placed to Dr. Mallory for evaluation. Will continue to monitor. 5. Diabetes. The patient's Lantus is being adjusted. Will increase to 26 units daily. Continue T radjenta. Continue insulin sliding scale and monitor. 6. Anemia. Continue to monitor H and H levels. 7. Hypertension. Continue current blood pressure regimen. 8. Obesity. Continue dietary modification. 9. Hypomagnesemia. Continue to monitor and replete. 10. Elevated alkaline phosphatase, etiology may have been hepatic in nature. The patient's GGT lev els are elevated. Alkaline phosphatase has been improving. Continue to monitor. Dictated By: OMER TEMPLE/MARY Conf#: [id number] [facility]#: [id number]
[2016-06-10] MEDS: DOCUSATE SODIUM 100 MG CAP PO SCH ×2 (12:37→20:38)
[2016-06-10] MEDS: LINAGLIPTIN 5 MG TABLET PO SCH (12:37)
[2016-06-10] MEDS: METOPROLOL 100 MG TAB PO SCH (12:38)
[2016-06-10] MEDS: ENOXAPARIN 30 MG/0.3 ML SYG SC SCH (12:41)
[2016-06-10] MEDS: INSULIN GLARGINE [LANtus] 3 ML PEN SC SCH (12:47)
--- NOTE | 2016-06-10 14:07 | PN ---
Date/Time of Note Date/Time of Note DATE: 06/10/16 TIME: 14:02 Assessment/Plan VTE Prophylaxis VTE Prophylaxis Intervention: LMWH Lines/Catheters Urinary Cath still in place: No Assessment/Plan Assessment/Plan 1. Left distal femur comminuted fracture, status post ORIF. With impaired mobility/gait/ADLs. Continue PT/OT. NWB LLE with knee immobilizer per ortho. Monitor surgical site. Gait advancing now supervision level. Dynamic standing balance fair. 2. Acute post op pain syndrome. Pain controlled, continue current regimen. 3. Diabetes mellitus type 2. Blood sugars elevated. Internal medicine adjusting insulin regimen. 4. Hypertension. BP controlled. Continue current regimen. 5. Anemia. Continue to monitor hemoglobin/hematocrit. 6.Acute on chronic kidney disease. Continue to monitor renal function, internal medicine managing. Avoid nephrotoxic agents. 7. Hypercalcemia. Work up and medial management per internal medicine. Subjective 24 Hr Interval Summary Free Text/Dictation Rehab progress note Subjective: No acute complaints. Reports LLE pain under control. ROS: Denies chest pain, no shortness of breath, no abdominal pain, no nausea or vomiting, no chills. Exam/Review of Systems Vital Signs Vitals Vital Signs Date Time Temp Pulse Resp B/P Pulse Ox O2 Delivery O2 Flow Rate FiO2 06/09/16 20:34 98.2 81 18 132/73 81 06/09/16 08:00 Room Air Intake and Output 06/09/16 06/09/16 06/10/16 15:00 23:00 07:00 Intake Total 720 ml 300 ml Output Total 600 ml 300 ml Balance 120 ml 0 ml Exam General: Awake, alert, no acute distress CV: Regular rate, s1s2 Lungs without wheezing, no accessory muscle use Abdomen soft, nontender, +bowel sounds Extremities: LLE knee immobilizer in place, no distal edema Neuro: No new sensory changes. Wiggles all toes. Follows simple commands. Results Result Diagram: 06/08/16 0616 06/09/16 0615 Results 24 hrs Laboratory Tests Test 06/09/16 17:15 06/10/16 02:09 06/10/16 07:55 06/10/16 12:00 Bedside Glucose 191 205 220 251 H Medications Medications Current Medications Acetaminophen/ Hydrocodone Bitart ([place] (5/325)) 1 tab Q4H PRN PO Moderate Pain 4-7 / 10 Last administered on 06/07/16 19:52; Admin Dose 1 TAB; Start 05/29 at 22:00 Bisacodyl (Dulcolax Supp) 10 mg DAILY PRN [place] CONSTIPATION; Start 05/29/16 at 22 :00 Metoprolol Tartrate (Lopressor) 100 mg DAILY PO Last administered on 06/10/16 12:38; Admin Dose 100 MG; Start 05/30/16 at 09:00 Pantoprazole (Protonix Tab) 40 mg DAILY@06 PO Last administered on 06/10/16 06 :14; Admin Dose 40 MG; Start 05/30/16 at 06:00 Tramadol HCl (Ultram) 100 mg Q4 PRN PO PAIN Last administered on 06/06/16 18:50 ; Admin Dose 100 MG; Start 05/29/16 at 22:00 Linagliptin (Tradjenta) 5 mg DAILY PO Last administered on 06/10/16 12:37; Admin Dose 5 MG; Start 05/30/16 at 09:00 Diagnostic Test (Pha) (Accucheck) 1 ea 02 XX Last administered on 06/07/16 02: 30; Admin Dose 1 EA; Start 05/31/16 at 02:00 Miscellaneous Information 1 ea NOTE XX ; Start 05/30/16 at 09:30 Glucose (Glutose) 15 gm Q15M PRN PO DECREASED GLUCOSE; Start 05/30/16 at 09:30 Glucose (Glutose) 22.5 gm Q15M PRN PO DECREASED GLUCOSE; Start 05/30/16 at 09: 30 Dextrose (D50w Syringe) 25 ml Q15M PRN IV DECREASED GLUCOSE; Start 05/30/16 at 09:30 Dextrose (D50w Syringe) 50 ml Q15M PRN IV DECREASED GLUCOSE; Start 05/30/16 at 09:30 Glucagon (Glucagen) 1 mg Q15M PRN IM DECREASED GLUCOSE; Start 05/30/16 at 09:30 Glucose (Glutose) 15 gm Q15M PRN BUCCAL DECREASED GLUCOSE; Start 05/30/16 at 09 :30 Enoxaparin Sodium (Lovenox) 30 mg DAILY SC Last administered on 06/10/16 12:41 ; Admin Dose 30 MG; Start 05/30/16 at 09:30 Lactulose (Enulose) 10 gm DAILY PRN PO CONSTIPATION Last administered on 12:16; Admin Dose 10 GM; Start 06/01/16 at 10:30 Docusate Sodium (Colace) 100 mg BID PO Last administered on 06/10/16 12:37; Admin Dose 100 MG; Start 06/07/16 at 12:00 Senna (Senokot) 1 tab HS PO Last administered on 06/09/16 20:36; Admin Dose 1 TAB; Start 06/07/16 at 21:00 Magnesium Hydroxide (Milk Of Mag) 30 ml BID PRN PO CONSTIPATION Last administered on 06/07/16 20:11; Admin Dose 30 ML; Start 06/07/16 at 11:00 Insulin Glargine (Lantus) 26 unit DAILY@08 SC Last administered on 06/10/16 12 :47; Admin Dose 26 UNIT; Start 06/10/16 at 09:30 RAUL BAILEY Jun 10, 2016 14:07
[2016-06-10 19:49] VITALS: BP 139/79; RESP 19
[2016-06-10] MEDS: SENNA TAB PO SCH (20:38)
[2016-06-11] MEDS: ACCUCHECK XX SCH (02:00)
[2016-06-11] MEDS: PANTOPRAZOLE (EC) 40 MG TAB PO SCH (06:36)
[2016-06-11 07:30] VITALS: BP 133/89; RESP 18
[2016-06-11 07:49] LABS: CREATININE 1.79 mg/dl (0.61-1.24)
[2016-06-11 07:50] LABS: CALCIUM 10.6 mg/dl (8.4-10.2); PHOSPHORUS 3.1 mg/dl (2.5-4.9)
[2016-06-11 07:51] LABS: MAGNESIUM 1.7 mg/dl (1.7-2.5)
[2016-06-11] MEDS: INSULIN ASPART [NOVOLOG] 3 ML PEN SC SCH ×4 (08:07→20:24)
[2016-06-11] MEDS: INSULIN GLARGINE [LANtus] 3 ML PEN SC SCH (08:07)
[2016-06-11] MEDS: ENOXAPARIN 30 MG/0.3 ML SYG SC SCH (08:08)
[2016-06-11] MEDS: LINAGLIPTIN 5 MG TABLET PO SCH (08:10)
[2016-06-11] MEDS: DOCUSATE SODIUM 100 MG CAP PO SCH ×2 (08:10→20:23)
[2016-06-11] MEDS: METOPROLOL 100 MG TAB PO SCH (08:10)
--- NOTE | 2016-06-11 10:11 | PN ---
Date/Time of Note Date/Time of Note DATE: 06/11/16 TIME: 10:08 Assessment/Plan VTE Prophylaxis VTE Prophylaxis Intervention: LMWH Lines/Catheters Urinary Cath still in place: No Assessment/Plan Assessment/Plan 1.Left distal femur comminuted fracture s/p ORIF, With impaired mobility/gait/ ADLs. Continue PT/OT. NWB LLE and knee immobilizer per ortho. Maintain surgical site care. Modified independent with bed mobility, supervision for transfers. 2. Acute pain syndrome. Controlled, continue prn tramadol and norco. 3. Diabetes mellitus type 2. Internal medicine adjusting insulin regimen. Continue to monitor blood sugars. 4. Hypertension. BP controlled. Continue current management. 5. Anemia. Continue to monitor hemoglobin/hematocrit. 6. TEJ on CKD. Managed per internal medicine, continue to monitor renal function. 7. Hypercalcemia. Management per internal medicine and endocrinology. Continue to monitor. Subjective 24 Hr Interval Summary Free Text/Dictation Rehab progress note Subjective: No acute complaints. Denies any current pain in left lower extremity. ROS: Denies headache, no dizziness, no chills, no abdominal pain, no nausea or vomiting, no chest pain or shortness of breath. Exam/Review of Systems Vital Signs Vitals Vital Signs Date Time Temp Pulse Resp B/P Pulse Ox O2 Delivery O2 Flow Rate FiO2 06/10/16 19:49 98.1 77 19 139/79 95 06/10/16 08:00 Room Air Intake and Output 06/10/16 06/10/16 06/11/16 15:00 23:00 07:00 Intake Total 700 ml 300 ml Output Total 150 ml 350 ml 300 ml Balance -150 ml 350 ml 0 ml Exam General: Awake, alert, no acute distress CV: S1S2, regular rate Lungs: Symmetrical air entry bilaterally, no accessory muscle use Abdomen soft, nontender, +bowel sounds Extremities: No new swelling. No cyanosis. Neuro: No focal changes. Follows simple commands. Results Result Diagram: 06/08/16 0616 06/11/16 0610 Results 24 hrs Laboratory Tests Test 06/10/16 12:00 06/10/16 17:31 06/11/16 06:10 06/11/16 07:37 Bedside Glucose 251 H 166 225 H Anion Gap 15 Blood Urea Nitrogen 27 H Calcium Level 10.6 H Carbon Dioxide Level 20 L Chloride Level 109 Creatinine 1.79 H Glucose Level 279 H Magnesium Level 1.7 Phosphorus Level 3.1 Potassium Level 4.0 Sodium Level 140 Test 06/11/16 09:53 Lab Scanned Report REFERENCE LAB Medications Medications Current Medications Acetaminophen/ Hydrocodone Bitart ([place] (5/325)) 1 tab Q4H PRN PO Moderate Pain 4- Last administered on 06/07/16 19:52; Admin Dose 1 TAB; Start 05/29 at 22:00 Bisacodyl (Dulcolax Supp) 10 mg DAILY PRN [place] CONSTIPATION; Start 05/29/16 at 22 :00 Metoprolol Tartrate (Lopressor) 100 mg DAILY PO Last administered on 06/11/16 08:10; Admin Dose 100 MG; Start 05/30/16 at 09:00 Pantoprazole (Protonix Tab) 40 mg DAILY@06 PO Last administered on 06/11/16 06 :36; Admin Dose 40 MG; Start 05/30/16 at 06:00 Tramadol HCl (Ultram) 100 mg Q4 PRN PO PAIN Last administered on 06/06/16 18:50 ; Admin Dose 100 MG; Start 05/29/16 at 22:00 Linagliptin (Tradjenta) 5 mg DAILY PO Last administered on 06/11/16 08:10; Admin Dose 5 MG; Start 05/30/16 at 09:00 Diagnostic Test (Pha) (Accucheck) 1 ea 02 XX Last administered on 06/07/16 02: 30; Admin Dose 1 EA; Start 05/31/16 at 02:00 Miscellaneous Information 1 ea NOTE XX ; Start 05/30/16 at 09:30 Glucose (Glutose) 15 gm Q15M PRN PO DECREASED GLUCOSE; Start 05/30/16 at 09:30 Glucose (Glutose) 22.5 gm Q15M PRN PO DECREASED GLUCOSE; Start 05/30/16 at 09: 30 Dextrose (D50w Syringe) 25 ml Q15M PRN IV DECREASED GLUCOSE; Start 05/30/16 at 09:30 Dextrose (D50w Syringe) 50 ml Q15M PRN IV DECREASED GLUCOSE; Start 05/30/16 at 09:30 Glucagon (Glucagen) 1 mg Q15M PRN IM DECREASED GLUCOSE; Start 05/30/16 at 09:30 Glucose (Glutose) 15 gm Q15M PRN BUCCAL DECREASED GLUCOSE; Start 05/30/16 at 09 :30 Enoxaparin Sodium (Lovenox) 30 mg DAILY SC Last administered on 06/11/16 08:08 ; Admin Dose 30 MG; Start 05/30/16 at 09:30 Lactulose (Enulose) 10 gm DAILY PRN PO CONSTIPATION Last administered on 12:16; Admin Dose 10 GM; Start 06/01/16 at 10:30 Docusate Sodium (Colace) 100 mg BID PO Last administered on 06/11/16 08:10; Admin Dose 100 MG; Start 06/07/16 at 12:00 Senna (Senokot) 1 tab HS PO Last administered on 06/09/16 20:36; Admin Dose 1 TAB; Start 06/07/16 at 21:00 Magnesium Hydroxide (Milk Of Mag) 30 ml BID PRN PO CONSTIPATION Last administered on 06/07/16 20:11; Admin Dose 30 ML; Start 06/07/16 at 11:00 Insulin Glargine (Lantus) 26 unit DAILY@08 SC Last administered on 06/11/16 08 :07; Admin Dose 26 UNIT; Start 06/10/16 at 09:30 RAUL BAILEY Jun 11, 2016 10:11
--- NOTE | 2016-06-11 10:37 | PN ---
DATE: SUBJECTIVE: The patient is stable, no acute events overnight. No fevers, chills, nausea or vomitin g. No shortness of breath. OBJECTIVE: VITAL SIGNS: Blood pressure is 139/79, respirations 19, pulse 77, temperature 98.1. HEENT: Head is normocephalic. NECK: Supple. HEART: Regular rate. LUNGS: Show diminished breath sounds at the base. ABDOMEN: Soft, nontender to palpation without rebound or guarding. EXTREMITIES: Negative for clubbing, cyanosis, no edema. DERMATOLOGIC: No rashes. MUSCULOSKELETAL: No joint effusions. NEUROLOGIC: No change in exam. MEDICATIONS: The patient's medications have been reviewed. LABORATORY DATA: Shows a sodium 140, potassium 4.0, chloride 100, bicarbonate 20, BUN 27, creatinin e 1.79, calcium 10.6. White count 6.7, hemoglobin 12.0, hematocrit 36.6, platelet count 299. ASSESSMENT AND PLAN: 1. Left distal femoral fracture. The patient is status post internal fixation. Currently stable. Continue PT, OT. 2. Nonoliguric acute kidney injury on top of chronic kidney disease, etiology is secondary to hemod ynamics. Renal function stabilized. We will continue to monitor. Continue supportive care, renall y dose all medications, avoid nephrotoxins. 3. Chronic kidney disease, stage IIIB. Etiology is from diabetes, hypertension. Continue disease factor modification. 4. Hypercalcemia, etiology is unclear, possible primary hyperthyroidism versus familial hypocalciur ic hypercalcemia. The patient's workup is ongoing. The patient's PTH level is within normal limits . A parathyroid related peptide is pending, a fractional excretion of calcium is currently pending. At this point, would recommend the patient to see an project management specialist in outpatient setting. Georgina sampson to monitor. 5. Diabetes. Continue Lantus. Continue current insulin regimen. 6. Anemia. Continue to monitor hemoglobin and hematocrit levels. 7. Hypertension. Continue current blood pressure regimen. 8. Obesity. Continue dietary modification. 9. Hypomagnesemia. Continue to monitor and replete. 10. Elevated alkaline phosphatase, etiology is likely chronic in nature. The alkaline phosphatase levels have been improving. Continue to monitor. Dictated By: OMER TEMPLE/NTS Conf#: [id number] DID#: [id number]
[2016-06-11 19:24] VITALS: BP 143/79; RESP 20
[2016-06-11] MEDS: SENNA TAB PO SCH (20:23)
[2016-06-12] MEDS: ACCUCHECK XX SCH (02:00)
[2016-06-12] MEDS: PANTOPRAZOLE (EC) 40 MG TAB PO SCH (05:13)
[2016-06-12 07:30] VITALS: BP 144/79; RESP 18
[2016-06-12] MEDS: DOCUSATE SODIUM 100 MG CAP PO SCH (08:19)
[2016-06-12] MEDS: LINAGLIPTIN 5 MG TABLET PO SCH (08:19)
[2016-06-12] MEDS: ENOXAPARIN 30 MG/0.3 ML SYG SC SCH (08:20)
[2016-06-12] MEDS: METOPROLOL 100 MG TAB PO SCH (08:20)
[2016-06-12] MEDS: INSULIN GLARGINE [LANtus] 3 ML PEN SC SCH (08:21)
[2016-06-12] MEDS: INSULIN ASPART [NOVOLOG] 3 ML PEN SC SCH ×2 (08:21→12:00)
--- NOTE | 2016-06-12 11:32 | PN ---
DATE: 06/12/2016 SUBJECTIVE: The patient is stable, no acute events overnight. No fevers, chills, nausea, vomiting, no shortness of breath. OBJECTIVE: VITAL SIGNS: Blood pressure is 143/79, respirations 20, pulse 75, temperature 98.5. HEENT: Head is normocephalic. NECK: Supple. HEART: Regular rate. LUNGS: Show diminished breath sounds at base. ABDOMEN: Soft, nontender to palpation. No rebound or guarding. EXTREMITIES: Negative for clubbing, cyanosis, no edema. DERMATOLOGIC: No rashes. MUSCULOSKELETAL: No joint effusions. NEUROLOGIC: No change in exam. MEDICATIONS: Have been reviewed. LABORATORY DATA: Has been reviewed. ASSESSMENT AND PLAN: 1. Left distal femoral fracture. The patient is status post internal fixation, currently stable. Continue PT, OT. 2. Nonoliguric acute kidney injury on top of chronic kidney disease. Etiology is hemodynamics. Re nal function stabilized. Continue to monitor. Continue supportive care, renally dose all meds, urszula id nephrotoxins. 3. Chronic kidney disease, stage IIIB. Etiology is from diabetes, hypertension, renal function sta ble. Continue disease factor modifications. 4. Hypercalcemia, etiology is unclear, possibly primary hyperparathyroidism versus familial hypocal ciuric hypercalcemia. The patient's workup is ongoing. The patient's fractional excretion of the c alcium is noted to be less than 1% which may be seen in familial hypocalciuric hypercalcemia. Furth er labs include a parathyroid hormone related peptide is pending. The patient was advised to see an global compensation director in outpatient setting for further evaluation. Will continue to monitor. 5. Diabetes. Continue Lantus insulin sliding scale. 6. Anemia. Continue to monitor hemoglobin and hematocrit levels. 7. Hypertension. Continue current blood pressure regimen. 8. Obesity. Continue dietary modification. 9. Hypomagnesemia, status post repletion. 10. Elevated alkaline phosphatase, etiology is likely hepatic. The patient's alkaline phosphatase levels have been improving. Continue to monitor. Dictated By: OMER TEMPLE/MARY Conf#: [id number] DID#: [id number]
--- NOTE | 2016-06-12 12:27 | CONS ---
Date/Time of Note Date/Time of Note DATE: 06/12/16 TIME: 12:26 Consult Date/Type/Reason Admit Date/Time May 29, 2016 at 20:24 Type of Consultation: medicine Subjective Looking forward to dc today Objective Vital Signs Date Time Temp Pulse Resp B/P Pulse Ox O2 Delivery O2 Flow Rate FiO2 06/12/16 07:30 98.6 74 18 144/79 95 06/10/16 08:00 Room Air Intake and Output 06/11/16 06/11/16 06/12/16 14:59 22:59 06:59 Intake Total 780 ml 280 ml Output Total 900 ml 400 ml Balance -120 ml -120 ml INTERDISCIPLINARY TEAM CONFERENCE BOWEL- Cont BLADDER-Cont SKIN- intact OT- DRESSING-sba BATHING-sba TOILETING-sba PT- BED MOBILITY-s TRANSFERS-s AMBULATIONsba 30 feet [place] MOBILITY-[place] A/P- Interdisciplinary team conference held today. Please see interdisciplinary sheet. Working toward d.c. today with post discharge follow up of physical therapy, occupational therapy. Results/Medications Result Diagram: 06/08/16 0616 06/11/16 0610 Results 24 hrs Laboratory Tests Test 06/11/16 17:09 06/11/16 20:22 06/12/16 07:37 06/12/16 11:44 Bedside Glucose 154 151 167 176 Medications Current Medications Acetaminophen/ Hydrocodone Bitart ([place] (5/325)) 1 tab Q4H PRN PO Moderate Pain 4-7 10 Last administered on 06/07/16 19:52; Admin Dose 1 TAB; Start 05/29 at 22:00 Bisacodyl (Dulcolax Supp) 10 mg DAILY PRN [place] CONSTIPATION; Start 05/29/16 at 22 :00 Metoprolol Tartrate (Lopressor) 100 mg DAILY PO Last administered on 06/12/16 08:20; Admin Dose 100 MG; Start 05/30/16 at 09:00 Pantoprazole (Protonix Tab) 40 mg DAILY@06 PO Last administered on 06/12/16 05 :13; Admin Dose 40 MG; Start 05/30/16 at 06:00 Tramadol HCl (Ultram) 100 mg Q4 PRN PO PAIN Last administered on 06/06/16 18:50 ; Admin Dose 100 MG; Start 05/29/16 at 22:00 Linagliptin (Tradjenta) 5 mg DAILY PO Last administered on 06/12/16 08:19; Admin Dose 5 MG; Start 05/30/16 at 09:00 Diagnostic Test (Pha) (Accucheck) 1 ea 02 XX Last administered on 06/07/16 02: 30; Admin Dose 1 EA; Start 05/31/16 at 02:00 Miscellaneous Information 1 ea NOTE XX ; Start 05/30/16 at 09:30 Glucose (Glutose) 15 gm Q15M PRN PO DECREASED GLUCOSE; Start 05/30/16 at 09:30 Glucose (Glutose) 22.5 gm Q15M PRN PO DECREASED GLUCOSE; Start 05/30/16 at 09: 30 Dextrose (D50w Syringe) 25 ml Q15M PRN IV DECREASED GLUCOSE; Start 05/30/16 at 09:30 Dextrose (D50w Syringe) 50 ml Q15M PRN IV DECREASED GLUCOSE; Start 05/30/16 at 09:30 Glucagon (Glucagen) 1 mg Q15M PRN IM DECREASED GLUCOSE; Start 05/30/16 at 09:30 Glucose (Glutose) 15 gm Q15M PRN BUCCAL DECREASED GLUCOSE; Start 05/30/16 at 09 :30 Enoxaparin Sodium (Lovenox) 30 mg DAILY SC Last administered on 06/12/16 08:20 ; Admin Dose 30 MG; Start 05/30/16 at 09:30 Lactulose (Enulose) 10 gm DAILY PRN PO CONSTIPATION Last administered on 12:16; Admin Dose 10 GM; Start 06/01/16 at 10:30 Docusate Sodium (Colace) 100 mg BID PO Last administered on 06/12/16 08:19; Admin Dose 100 MG; Start 06/07/16 at 12:00 Senna (Senokot) 1 tab HS PO Last administered on 06/11/16 20:23; Admin Dose 1 TAB; Start 06/07/16 at 21:00 Magnesium Hydroxide (Milk Of Mag) 30 ml BID PRN PO CONSTIPATION Last administered on 06/07/16 20:11; Admin Dose 30 ML; Start 06/07/16 at 11:00 Insulin Glargine (Lantus) 26 unit DAILY@08 SC Last administered on 2/13/17at 08 :21; Admin Dose 26 UNIT; Start 06/10/16 at 09:30 PATI PEREZ MD Jun 12, 2016 12:27
== END 2016-06-12 13:05 | disposition home or self-care (01) | DRG 560 ==
LOC: VRC 20:24
PROVIDERS: ADMIT Physical Medicine & Rehabilitation; ATTEND Internal Medicine Nephrology
PROC: F07Z5ZZ Bed Mobility Treatment (ICD-10-PCS; principal; 2016-05-29)
PROC: F08Z2ZZ Grooming/Personal Hygiene Treatment (ICD-10-PCS; 2016-05-29)
DX: S72.492D Other fracture of lower end of left femur, subsequent encounter for closed fracture with routine healing (principal); N17.9 Acute kidney failure, unspecified; E83.52 Hypercalcemia; E11.9 Type 2 diabetes mellitus without complications; D64.9 Anemia, unspecified; I12.9 Hypertensive chronic kidney disease with stage 1 through stage 4 chronic kidney disease, or unspecified chronic kidney disease; W18.30XD Fall on same level, unspecified, subsequent encounter; R52 Pain, unspecified; E66.9 Obesity, unspecified; Z68.33 Body mass index [BMI] 33.0-33.9, adult; N18.9 Chronic kidney disease, unspecified; R74.8 Abnormal levels of other serum enzymes
CPT/HCPCS: 76700; 80048; 80053; 80076; 81001; 81003; 82043; 82306; 82310; 82570; 82652; 82962; 82977; 83036; 83735; 84100; 84155; 84156; 84165; 84166; 84300; 85025; 86320; 86325; 87081; 87086; 95852; 97110; 97112; 97116; 97150; 97163; 97167; 97530; 97535; 97542; J1650; J1815